=== PATIENT | female | born 1940 | race Caucasian/White ===

== ENCOUNTER → 2016-05-23 | Outpatient (CLI) | payer OTHER ==
[~2016-05-23] MED LIST: IOPAMIDOL (ISOVUE-300) 100 ML BTL IV ONE
[2016-05-23 08:32] LABS: CREATININE 0.6 mg/dL (0.6-1.0); GLOMERULAR FILTRATION RATE > 60
== END ==
LOC: FIMAGING 07:40
PROVIDERS: ATTEND Family Medicine
DX: R19.00 Intra-abdominal and pelvic swelling, mass and lump, unspecified site (principal); N28.89 Other specified disorders of kidney and ureter; K80.20 Calculus of gallbladder without cholecystitis without obstruction; K44.9 Diaphragmatic hernia without obstruction or gangrene
CPT/HCPCS: 74177; Q9967

== ENCOUNTER 2016-06-17 01:43 | Emergency (ER) | payer OTHER ==
[2016-06-17 01:52] VITALS: RESP 18
[2016-06-17] MEDS ORDERED: NS 1,000 ML IV ONE (02:06)
[2016-06-17] MEDS ORDERED: ONDANSETRON 4 MG/2 ML VIAL IVP ONE (02:06)
[2016-06-17] MEDS ORDERED: HYDROmorphONE/DILAUDID 1 MG/ML SYR IVP ONE ×2 (02:06→03:23)
--- NOTE | 2016-06-17 02:10 | EDPHY ---
H & P Stated Complaint: abd/rectal pain Time Seen by Provider: 06/17/16 02:00 HPI/ROS: CHIEF COMPLAINT: Abdominal pain HISTORY OF PRESENT ILLNESS: Patient is a 76-year-old female comes to the emergency department complaining of abdominal pain, distention and episode of vomiting about an hour ago. She states that she has not had a bowel movement since she had a hysterectomy/oophorectomy on Monday. This is postop day 3. 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 She was discharged from [facility] yesterday after passing gas. She states however that during the evening and overnight her pain has increased significantly. She denies urinary symptoms. She has felt too nauseous to take her pain medication. REVIEW OF SYSTEMS: Constitutional: denies: chills, fever, recent illness, recent injury EENTM: denies: blurred vision, double vision, nose congestion Respiratory: denies: cough, shortness of breath Cardiac: denies: chest pain, irregular heart rate, lightheadedness, palpitations Gastrointestinal/Abdominal: See HPI Genitourinary: denies: dysuria, frequency, hematuria, pain Musculoskeletal: denies: joint pain, muscle pain Skin: denies: lesions, rash, jaundice, bruising Neurological: denies: headache, numbness, paresthesia, tingling, dizziness, weakness Hematologic/Lymphatic: denies: blood clots, easy bleeding, easy bruising Immunologic/allergic: denies: HIV/AIDS, transplant EXAM: GENERAL: Well-appearing, well-nourished and in no acute distress. HEAD: Atraumatic, normocephalic. EYES: Pupils equal round and reactive to light, extraocular movements intact, sclera anicteric, conjunctiva are normal. ENT: TMs normal, nares patent, oropharynx clear without exudates. Moist mucous membranes. NECK: Normal range of motion, supple without lymphadenopathy or JVD. LUNGS: Breath sounds clear to auscultation bilaterally and equal. No wheezes rales or rhonchi. HEART: Regular rate and rhythm without murmurs, rubs or gallops. ABDOMEN: Distended, nontender, wound clean dry and intact. Rectal shows soft external hemorrhoid, mildly tender, no bleeding no stool in rectal vault. BACK: No CVA tenderness, no spinal tenderness, step-offs or deformities EXTREMITIES: Normal range of motion, no pitting or edema. No clubbing or cyanosis. NEUROLOGICAL: Cranial nerves II through XII grossly intact. Normal speech, normal gait. 5/5 strength, normal movement in all extremities, normal sensation PSYCH: Normal mood, normal affect. SKIN: Warm, dry, normal turgor, no visible rashes or lesions. Source: Patient Exam Limitations: No limitations - Personal History Current Tetanus/Diphtheria Vaccine: Yes Current Tetanus Diphtheria and Acellular Pertussis (TDAP): Yes - Medical/Surgical History Hx Asthma: No Hx Chronic Respiratory Disease: No Hx Diabetes: No Hx Cardiac Disease: No Hx Renal Disease: No Hx Cirrhosis: No Hx Alcoholism: No Hx HIV/AIDS: No Hx Splenectomy or Spleen Trauma: No Other PMH: hysterectomy, hypothyroid, - Family History Significant Family History: No pertinent family hx - Social History Smoking Status: Never smoked Alcohol Use: None Drug Use: None Constitutional: Initial Vital Signs Temperature (C) 36.6 C 06/17/16 01:49 Heart Rate 99 06/17/16 01:49 Respiratory Rate 18 06/17/16 01:49 Blood Pressure 136/75 H 06/17/16 01:49 O2 Sat (%) 91 L 06/17/16 01:49 O2 Delivery Mode Room Air O2 (L/minute) 4 Allergies/Adverse Reactions: No Known Allergies Allergy (Unverified 09/01/12 19:01) Home Medications: Medication Instructions Recorded Simvastatin [Zocor 20 mg (RX)] 20 mg PO DAILY18 09/01/12 THYROID 10 mg PO DAILY 09/01/12 oxyCODONE/APAP 5/325 [Percocet 1 tab PO Q4-6PRN PRN #14 tab 09/01/12 5/325] Medical Decision Making - Diagnostics Imaging: Discussed imaging studies w/ charge authorizer Radiologist ED Course/Re-evaluation: We discussed the patient's CT scan which is reassuring. The patient is currently symptom free. Abdomen is nontender. She does have a hemorrhoid on rectal exam but no stool in her vault. Nonbloody. I will start her on MiraLax and have encouraged her to take stool softeners. She had only taken 2. Also encouraged her to decrease the opiates if she is possible. I will have her titrate the MiraLax to affect. She and her are happy with this plan and declines further workup or testing at this time. Differential Diagnosis: Partial list of the Differential diagnosis considered include but were not limited to; constipation, small-bowel obstruction, perforation, hemorrhoid, hemorrhage and although unlikely based on the history and physical exam, I also considered prolapse, abscess. I discussed these differential diagnoses and the plan with the patient as well as the usual and expected course. The patient understands that the diagnosis is provisional and that in medicine we are not always correct and that further workup is often warranted. Usual and customary warnings were given. All of the patient's questions were answered. The patient was instructed to return to the emergency department should the symptoms at all worsen or return, otherwise to followup with the physician as we discussed. - Data Points Laboratory Results: Laboratory Results 06/17/16 02:25 06/17/16 02:25 06/17/16 06/17/16 02:25 02:25 WBC 4.06 10^3/uL 10^3/uL (3.80-9.50) RBC 4.04 10^6/uL L 10^6/uL (4.18-5.33) Hgb 12.2 g/dL L g/dL (12.6-16.3) Hct 37.7 % L % (38.0-47.0) MCV 93.3 fL fL (81.5-99.8) MCH 30.2 pg pg (27.9-34.1) MCHC 32.4 g/dL g/dL (32.4-36.7) RDW 12.1 % % (11.5-15.2) Plt Count 231 10^3/uL 10^3/uL (150-400) MPV 9.4 fL fL (8.7-11.7) Neut % (Auto) 80.4 % H % (39.3-74.2) Lymph % (Auto) 14.8 % L % (15.0-45.0) [place] % (Auto) 4.4 % L % (4.5-13.0) Eos % (Auto) 0.0 % L % (0.6-7.6) Baso % (Auto) 0.2 % L % (0.3-1.7) Nucleat RBC Rel Count 0.0 % % (0.0-0.2) Absolute Neuts (auto) 3.26 10^3/uL 10^3/uL (1.70-6.50) Absolute Lymphs (auto) 0.60 10^3/uL L 10^3/uL (1.00-3.00) Absolute Monos (auto) 0.18 10^3/uL L 10^3/uL (0.30-0.80) Absolute Eos (auto) 0.00 10^3/uL L 10^3/uL (0.03-0.40) Absolute Basos (auto) 0.01 10^3/uL L 10^3/uL (0.02-0.10) Absolute Nucleated RBC 0.00 10^3/uL 10^3/uL (0-0.01) Immature Gran % 0.2 % % (0.0-1.1) Immature Gran # 0.01 10^3/uL 10^3/uL (0.00-0.10) Sodium 139 mEq/L mEq/L (134-144) Potassium 3.8 mEq/L mEq/L (3.5-5.2) Chloride 101 mEq/L mEq/L (97-110) Carbon Dioxide 29 mEq/l mEq/l (22-31) Anion Gap 9 mEq/L mEq/L (8-16) BUN 12 mg/dL mg/dL (7-23) Creatinine 0.5 mg/dL L mg/dL (0.6-1.0) Estimated GFR > 60 Glucose 156 mg/dL H mg/dL (70-100) Calcium 8.7 mg/dL mg/dL (8.5-10.4) Total Bilirubin 1.0 mg/dL mg/dL (0.1-1.4) Conjugated Bilirubin 0.5 mg/dL mg/dL (0.0-0.5) Unconjugated Bilirubin 0.5 mg/dL mg/dL (0.0-1.1) AST 34 IU/L IU/L (14-46) ALT 33 IU/L IU/L (9-52) Alkaline Phosphatase 57 IU/L IU/L (38-126) Total Protein 6.0 g/dL L g/dL (6.3-8.2) Albumin 3.5 g/dL g/dL (3.5-5.0) Lipase 36.0 IU/L IU/L (23-300) Medications Given: Discontinued Medications Hydromorphone HCl (Dilaudid) 0.5 mg IVP EDNOW ONE Stop: 06/17/16 02:07 Last Admin: 06/17/16 02:38 Dose: 0.5 mg Hydromorphone HCl (Dilaudid) 0.5 mg IVP EDNOW ONE Stop: 06/17/16 03:24 Last Admin: 06/17/16 03:23 Dose: 0.5 mg Sodium Chloride (Ns) 1,000 mls @ 0 mls/hr IV ONCE ONE PRN Reason: Wide Open Stop: 06/17/16 02:07 Last Admin: 06/17/16 02:38 Dose: 1,000 mls Ondansetron HCl (Zofran) 4 mg IVP EDNOW ONE Stop: 06/17/16 02:07 Last Admin: 06/17/16 02:39 Dose: 4 mg Departure - Departure Disposition: Home, Routine, Self-Care Clinical Impression: Constipation Qualifiers: Constipation type: unspecified constipation type Qualified Code(s): K59.00 - Constipation, unspecified Hemorrhoid Qualifiers: Hemorrhoid type: unspecified Qualified Code(s): K64.9 - Unspecified hemorrhoids Condition: Fair Instructions: Constipation (ED), Hemorrhoids (ED) Additional Instructions: Use the MiraLax 1 cap full every 2 hours until you have satisfactory results then discontinue Use preparation H with cortisone cream apply to hemorrhoid twice daily Try to decrease narcotic use Referrals: Beelm Gao MD [Primary Care Provider] - As per Instructions Staci Klein MD [Retired Resigned] - As per Instructions
[2016-06-17 02:34] LABS: % IMMATURE GRANULYOCYTES 0.2 % (0.0-1.1); ABSOLUTE IMMATURE GRANULOCYTES 0.01 10^3/uL (0.00-0.10); ADD DIFF? NO; ADD MORPH? NO; ADD SCAN? NO; ATYPICAL LYMPHOCYTE FLAG 0 (0-99); FRAGMENT RBC FLAG 0 (0-99); HEMATOCRIT 37.7 % (38.0-47.0); HEMOGLOBIN 12.2 g/dL (12.6-16.3); LEFT SHIFT FLG 30 (0-99); LIPEMIA HEMOLYSIS FLAG 80 (0-99); MEAN CELL HEMOGLOBIN 30.2 pg (27.9-34.1); MEAN CELL HEMOGLOBIN CONCENTR. 32.4 g/dL (32.4-36.7); MEAN CELL VOLUME 93.3 fL (81.5-99.8); MEAN PLATELET VOLUME 9.4 fL (8.7-11.7); PLATELET CLUMPS FLAG 0 (0-99); PLATELET COUNT 231 10^3/uL (150-400); RED BLOOD CELL COUNT 4.04 10^6/uL (4.18-5.33); RED CELL DISTRIBUTION WIDTH 12.1 % (11.5-15.2)
[2016-06-17] MEDS ORDERED: IOPAMIDOL (ISOVUE-300) 100 ML BTL IV ONE (02:34)
[2016-06-17 02:40] VITALS: O2SAT 94
[2016-06-17 03:15] LABS: ALANINE AMINOTRANSFERASE 33 IU/L (9-52); ALBUMIN 3.5 g/dL (3.5-5.0); ALKALINE PHOSPHATASE 57 IU/L (38-126); ANION GAP 9 mEq/L (8-16); ASPARTATE AMINOTRANSFERASE 34 IU/L (14-46); BILIRUBIN-CONJUGATED 0.5 mg/dL (0.0-0.5); BILIRUBIN-UNCONJUGATED 0.5 mg/dL (0.0-1.1); CALCIUM 8.7 mg/dL (8.5-10.4); CARBON DIOXIDE 29 mEq/l (22-31); CHLORIDE 101 mEq/L (97-110); CREATININE 0.5 mg/dL (0.6-1.0); GLOMERULAR FILTRATION RATE > 60; GLUCOSE 156 mg/dL (70-100); POTASSIUM 3.8 mEq/L (3.5-5.2); SODIUM 139 mEq/L (134-144)
[2016-06-17] MEDS ORDERED: HYDROmorphONE/DILAUDID 1 MG/ML SYR ONE (03:19)
[2016-06-17 06:24] VITALS: BP 155/90; PULSE 105; TEMP 98.1
== END 2016-06-17 05:00 | disposition home or self-care (01) ==
DX: K59.00 Constipation, unspecified (principal); K64.9 Unspecified hemorrhoids; Z90.710 Acquired absence of both cervix and uterus
CPT/HCPCS: 74177; 96361; 96374; 96375; 96376; 99285; J1170; J2405; P9016; Q9967

== ENCOUNTER 2016-06-17 13:10 | Inpatient (IN) | payer OTHER ==
[2016-06-17] MEDS ORDERED: NS 1,000 ML IV ONE (13:26)
[2016-06-17] MEDS ORDERED: ONDANSETRON 4 MG/2 ML VIAL IVP ONE (13:26)
[2016-06-17] MEDS ORDERED: ERTAPENEM 1 GM in NS 100 ML IV ONE (13:42)
--- NOTE | 2016-06-17 13:47 | EDPHY ---
H & P Time Seen by Provider: 06/17/16 13:26 HPI/ROS: CHIEF COMPLAINT: Abdominal pain, vomiting HISTORY OF PRESENT ILLNESS: 76-year-old female 3 days status post NANCY and bilateral oophorectomy presents with severe abdominal pain and vomiting. She was doing well in the postoperative period until this morning at 2:00 a.m.. She had sudden onset of severe pelvic discomfort associated with vomiting. She was seen in this emergency department this morning and the initial CT scan report was negative. However, on over-read of the CT scan this afternoon, she has a micro perforation of the sigmoid colon. She continues to have severe pelvic discomfort, left greater than right, associated with multiple episodes of vomiting. She is unable to tolerate any fluids or food. No bowel movement since the operation. No known fever and no chills. REVIEW OF SYSTEMS: Eyes: No visual changes ENT: No sore throat Respiratory: No cough, no shortness of breath Cardiac: No chest pain Genitourinary: No hematuria, no dysuria Musculoskeletal: No leg pain or swelling Skin: No rash Neurological: No headache Psychiatric: No depression Past Medical/Surgical History: Hypothyroidism Social History: Academic Hospitalist: Dr. Staci Klein Smoking Status: Never smoked Physical Exam: General Appearance: Alert, pale, appears in pain Eyes: Pupils equal and round, no conjunctival pallor ENT, Mouth: Mucous membranes moist Neck: Normal inspection Respiratory: Lungs are clear to auscultation Cardiovascular: Regular rate and rhythm Gastrointestinal: Abdomen is distended, diffuse pelvic tenderness, especially on the left, hypoactive bowel sounds; the surgical incision is clean dry and intact with surrounding ecchymosis Neurological: A&O, nonfocal exam Skin: Warm and dry, no rash Extremities: Nontender, no pedal edema Psychiatric: Mood and affect normal Constitutional: Initial Vital Signs Temperature (C) 36.1 C 06/17/16 13:15 Heart Rate 88 06/17/16 13:15 Respiratory Rate 16 06/17/16 13:15 Blood Pressure 139/78 H 06/17/16 13:15 O2 Sat (%) 96 06/17/16 13:15 O2 Delivery Mode Oxymask O2 (L/minute) 10 Allergies/Adverse Reactions: No Known Allergies Allergy (Unverified 09/01/12 19:01) Home Medications: Medication Instructions Recorded Simvastatin [Zocor 20 mg (RX)] 20 mg PO DAILY18 09/01/12 THYROID 10 mg PO DAILY 09/01/12 oxyCODONE/APAP 5/325 [Percocet 1 tab PO Q4-6PRN PRN #14 tab 09/01/12 5/325] Medical Decision Making - Diagnostics Imaging Results: Imaging Impressions Chest X-Ray 06/17/16 14:11 Impression: 1. Bibasilar subsegmental atelectasis. 2. Free air is suspected under the right hemidiaphragm. This was also identified on CT study from earlier today. ED Course/Re-evaluation: IV normal saline 1 L, morphine and Zofran IV given. Invanz 1 g IV given for bowel perforation. Dr Ernie cabrera, d/w her PA, Zara. Will c/b. 2 p.m.-The patient's blood pressure is now 89/60 and heart rate 130, O2 sat 80% on RA and she is drowsy. Abdominal exam unchanged. This is a very rapid change in her status, and she is likely septic. Lactate and blood cultures were drawn. IV normal saline 2 L given. I consulted with Dr. Myra Allen, she will see the patient in the emergency department. 2:20pm-Dr. Nails in ED and is planning to take the patient emergently to the operating room. IVF infusing at 20ml/kg, remains hypotensive, will consider central line/pressors in OR if hypotension persists. At this point she meets the severe sepsis protocol, lactate is still pending. This patient utilized 40 minutes of critical care time exclusive of unbundled procedures. Differential Diagnosis: Differential diagnosis includes does not limited to bowel perforation, pneumonia , urinary tract infection, dehydration, small-bowel obstruction. - Data Points Laboratory Results: Laboratory Results 06/17/16 13:30 06/17/16 13:30 06/17/16 06/17/16 06/17/16 14:53 14:32 13:30 WBC RBC Hgb POC Hgb 7.8 gm/dL L gm/dL (12.3-15.9) Hct POC Hct 23 % L % (35.5-47.5) MCV MCH MCHC RDW Plt Count MPV Neut % (Auto) Lymph % (Auto) [place] % (Auto) Eos % (Auto) Baso % (Auto) Nucleat RBC Rel Count Absolute Neuts (auto) Absolute Lymphs (auto) Absolute Monos (auto) Absolute Eos (auto) Absolute Basos (auto) Absolute Nucleated RBC Immature Gran % Seg Neutrophils % Band Neutrophils % Lymphocytes % Monocytes % Eosinophils % Metamyelocytes % Myelocytes % Immature Gran # Absolute Seg Neuts Absolute Band Neuts Absolute Lymphocytes Absolute Monocytes Absolute Eosinophils Absolute Metamyelocyte Absolute Myelocytes Platelet Estimate Polychromasia Oval Macrocytes Smear Review By PT 14.9 SEC SEC (12.0-15.0) INR 1.17 H (0.83-1.16) APTT 28.7 SEC SEC (23.0-38.0) POC Sodium 144 mEq/L mEq/L (134-144) Sodium POC Potassium 2.4 mEq/L L* mEq/L (3.3-5.0) Potassium POC Chloride 108 mEq/L mEq/L (96-108) Chloride Carbon Dioxide Anion Gap POC BUN 11 mg/dL mg/dL (7-23) BUN Creatinine POC Creatinine 0.8 mg/dL mg/dL (0.6-1.2) Estimated GFR Glucose POC Glucose 96 mg/dL mg/dL (70-100) Calcium Total Bilirubin 1.2 mg/dL mg/dL (0.1-1.4) 06/17/16 06/17/16 13:30 13:30 WBC 2.10 10^3/uL L 10^3/uL (3.80-9.50) RBC 3.96 10^6/uL L 10^6/uL (4.18-5.33) Hgb 11.9 g/dL L g/dL (12.6-16.3) POC Hgb Hct 37.3 % L % (38.0-47.0) POC Hct MCV 94.2 fL fL (81.5-99.8) MCH 30.1 pg pg (27.9-34.1) MCHC 31.9 g/dL L g/dL (32.4-36.7) RDW 12.3 % % (11.5-15.2) Plt Count 233 10^3/uL 10^3/uL (150-400) MPV 9.6 fL fL (8.7-11.7) Neut % (Auto) 76.7 % H % (39.3-74.2) Lymph % (Auto) 15.2 % % (15.0-45.0) [place] % (Auto) 7.6 % % (4.5-13.0) Eos % (Auto) 0.0 % L % (0.6-7.6) Baso % (Auto) 0.5 % % (0.3-1.7) Nucleat RBC Rel Count 0.0 % % (0.0-0.2) Absolute Neuts (auto) 1.61 10^3/uL L 10^3/uL (1.70-6.50) Absolute Lymphs (auto) 0.32 10^3/uL L 10^3/uL (1.00-3.00) Absolute Monos (auto) 0.16 10^3/uL L 10^3/uL (0.30-0.80) Absolute Eos (auto) 0.00 10^3/uL L 10^3/uL (0.03-0.40) Absolute Basos (auto) 0.01 10^3/uL L 10^3/uL (0.02-0.10) Absolute Nucleated RBC 0.00 10^3/uL 10^3/uL (0-0.01) Immature Gran % 0.0 % % (0.0-1.1) Seg Neutrophils % 19 % % Band Neutrophils % 35 % % Lymphocytes % 22 % % Monocytes % 3 % % Eosinophils % 1 % % Metamyelocytes % 13 % % Myelocytes % 7 % % Immature Gran # 0.00 10^3/uL 10^3/uL (0.00-0.10) Absolute Seg Neuts 0.40 10^/uL L 10^/uL (1.70-6.50) Absolute Band Neuts 0.74 10^3/uL H 10^3/uL (0.00-0.70) Absolute Lymphocytes 0.46 10^3/uL L 10^3/uL (1.00-3.00) Absolute Monocytes 0.06 10^3/uL L 10^3/uL (0.30-0.80) Absolute Eosinophils 0.02 10^3/uL L 10^3/uL (0.03-0.40) Absolute Metamyelocyte 0.27 10^3/mL H 10^3/mL (0.00-0.00) Absolute Myelocytes 0.15 10^3/mL H 10^3/mL (0.00-0.00) Platelet Estimate ADEQUATE (ADEQ) Polychromasia 1+ H Oval Macrocytes 1+ H Smear Review By Pending PT INR APTT POC Sodium Sodium 133 mEq/L L mEq/L (134-144) POC Potassium Potassium 3.6 mEq/L mEq/L (3.5-5.2) POC Chloride Chloride 98 mEq/L mEq/L (97-110) Carbon Dioxide 21 mEq/l L D mEq/l (22-31) Anion Gap 14 mEq/L mEq/L (8-16) POC BUN BUN 17 mg/dL mg/dL (7-23) Creatinine 1.0 mg/dL D mg/dL (0.6-1.0) POC Creatinine Estimated GFR 54 Glucose 149 mg/dL H mg/dL (70-100) POC Glucose Calcium 8.4 mg/dL L mg/dL (8.5-10.4) Total Bilirubin Medications Given: Discontinued Medications Sodium Chloride (Ns) 1,000 mls @ 0 mls/hr IV ONCE ONE PRN Reason: Wide Open Stop: 06/17/16 13:27 Last Admin: 06/17/16 13:38 Dose: 1,000 mls Ertapenem 1 gm/ Sodium (Chloride) 100 mls @ 200 mls/hr IV EDNOW ONE PRN Reason: Protocol Stop: 06/17/16 14:11 Last Admin: 06/17/16 14:40 Dose: 100 mls Morphine Sulfate (Morphine) 4 mg IVP EDNOW ONE Stop: 06/17/16 13:42 Last Admin: 06/17/16 14:40 Dose: Not Given Ondansetron HCl (Zofran) 4 mg IVP EDNOW ONE Stop: 06/17/16 13:27 Last Admin: 06/17/16 13:53 Dose: 4 mg Point of Care Test Results: 06/17/16 14:32 POC Sodium 144 POC Potassium 2.4 L* POC Chloride 108 POC BUN 11 POC Creatinine 0.8 POC Glucose 96 Departure - Departure Disposition: To OP Cath/Surgery Clinical Impression: Bowel perforation, Severe sepsis Condition: Critical
--- NOTE | 2016-06-17 13:58 | CPEKG ---
Heart Rate: 120 RR Interval: 500 P-R Interval: 132 QRSD Interval: 78 QT Interval: 316 QTC Interval: 447 P [place]: -23 QRS [place]: -54 T Wave [place]: 22 EKG Severity - ABNORMAL ECG - EKG Impression: SINUS TACHYCARDIA EKG Impression: PROBABLE LEFT ATRIAL ABNORMALITY EKG Impression: LEFT ANTERIOR FASCICULAR BLOCK EKG Impression: CONSIDER RVH W/ SECONDARY REPOL ABNORMALITY EKG Impression: PROBABLE LEFT VENTRICULAR HYPERTROPHY Electronically Signed By: Quynh Wesley 17-Jun-2016 20:40:12
[2016-06-17 13:59] LABS: ADD DIFF? NO; ADD MORPH? NO; ADD SCAN? YES; ATYPICAL LYMPHOCYTE FLAG 0 (0-99); FRAGMENT RBC FLAG 0 (0-99); HEMATOCRIT 37.3 % (38.0-47.0); HEMOGLOBIN 11.9 g/dL (12.6-16.3); LIPEMIA HEMOLYSIS FLAG 80 (0-99); MEAN CELL HEMOGLOBIN 30.1 pg (27.9-34.1); MEAN CELL HEMOGLOBIN CONCENTR. 31.9 g/dL (32.4-36.7); MEAN CELL VOLUME 94.2 fL (81.5-99.8); MEAN PLATELET VOLUME 9.6 fL (8.7-11.7); PLATELET CLUMPS FLAG 20 (0-99); PLATELET COUNT 233 10^3/uL (150-400); RED BLOOD CELL COUNT 3.96 10^6/uL (4.18-5.33); RED CELL DISTRIBUTION WIDTH 12.3 % (11.5-15.2)
[2016-06-17 14:01] LABS: LEFT SHIFT FLG 300 (0-99)
[2016-06-17 14:21] LABS: ANION GAP 14 mEq/L (8-16); CALCIUM 8.4 mg/dL (8.5-10.4); CARBON DIOXIDE 21 mEq/l (22-31); CHLORIDE 98 mEq/L (97-110); GLOMERULAR FILTRATION RATE 54; GLUCOSE 149 mg/dL (70-100); POTASSIUM 3.6 mEq/L (3.5-5.2); SODIUM 133 mEq/L (134-144)
[2016-06-17] MEDS ORDERED: NS 2,200 ML IV ONE (14:46)
[2016-06-17] MEDS ORDERED: BUPIVACAINE 0.5% 30 ML SDV ONE (14:54)
[2016-06-17 14:55] LABS: SCAN POSITIVE
[2016-06-17 15:01] LABS: INR 1.17 (0.83-1.16); PROTIME(PATIENT) 14.9 SEC (12.0-15.0)
[2016-06-17 15:02] LABS: APTT 28.7 SEC (23.0-38.0)
[2016-06-17 15:04] LABS: MACROCYTES 1+; PLATELET ESTIMATE ADEQUATE (ADEQ); POLYCHROMASIA 1+
[2016-06-17 15:40] LABS: BILIRUBIN,TOTAL 1.2 mg/dL (0.1-1.4)
--- NOTE | 2016-06-17 16:37 | POSTOPPROG ---
Post Op Note Date of Operation: 06/17/16 Surgeon: Eneida Bowens Ophthalmic Medical Technician: iglesia carlson Anesthesiologist: memo Anesthesia: GET(General Endotracheal) Pre-op Diagnosis: perf viscus Post-op Diagnosis: perforation of sigmoid colon Indication: 76yo Fs/p NANCY BSO with worsening abd pain and e/o free air Procedure: expl laparotomy c colon resection, LAR, diverting loop ileostomy Findings: perf sigmoid colon Inf/Abcess present in the surg proc area at time of surgery?: No Depth: Organ Space EBL: 50-100 Complications: none immediately postop Drains: Eric Talley Specimen(s): colon peritoneal fluid cx
[2016-06-17] MEDS ORDERED: NALOXONE HCL 0.4 MG/ML INJ IVP PRN (16:42)
[2016-06-17] MEDS ORDERED: PROTOCOL CALCIUM 1 DOSE IV PRN (18:19)
[2016-06-17] MEDS ORDERED: PROTOCOL MAGNESIUM 1 DOSE IV PRN (18:19)
[2016-06-17] MEDS ORDERED: PROTOCOL K PHOSPHATE 1 DOSE IV PRN (18:19)
[2016-06-17] MEDS ORDERED: PROTOCOL POTASSIUM 1 DOSE MISC PRN (18:19)
--- NOTE | 2016-06-17 18:19 | POSTANESTH ---
Post Anesthetic Evaluation Cardiovascular Status: Tx Hyper/Hypo-tension Respiratory Status: Similar to Pre-op Cond. Level of Consciousness/Mental Status: Mildly Sleepy, Arousable Pain Control: Adequate, Prn Tx Ordered Nausea/Vomiting Control: Adequate, Prn Tx Ordered Complications Possibly Related to Anesthesia: None Noted (On NorEPI, post 5L crystalloid and 2 units PRBC)
[2016-06-17 19:18] LABS: MIXED VENOUS O2 SATURATION 92 % (65-75)
[2016-06-17] MEDS: POTASSIUM Cl (KCl) 50 ML IV SCH ×2 (19:20→21:43)
[2016-06-17] MEDS: HYDROmorphONE/DILAUDID 6 MG/30 ML PCA IV PRN (19:21)
[2016-06-17 19:23] LABS: ALANINE AMINOTRANSFERASE 36 IU/L (9-52); ALBUMIN 1.8 g/dL (3.5-5.0); ALKALINE PHOSPHATASE 32 IU/L (38-126); ANION GAP 6 mEq/L (8-16); ASPARTATE AMINOTRANSFERASE 44 IU/L (14-46); BILIRUBIN,TOTAL 1.1 mg/dL (0.1-1.4); CARBON DIOXIDE 22 mEq/l (22-31); CHLORIDE 107 mEq/L (97-110); CREATININE 0.8 mg/dL (0.6-1.0); GLOMERULAR FILTRATION RATE > 60; GLUCOSE 98 mg/dL (70-100); POTASSIUM 3.3 mEq/L (3.5-5.2); SODIUM 135 mEq/L (134-144); TOTAL PROTEIN 3.5 g/dL (6.3-8.2)
[2016-06-17 19:39] LABS: LACGHOST ORDER
[2016-06-17 19:56] LABS: CALCIUM 6.6 mg/dL (8.5-10.4)
[2016-06-17] MEDS: VASOPRESSIN/DEXTROSE 250 ML IV SCH (20:02)
[2016-06-17] MEDS: NOREPINEPHRINE/NS 500 ML IV SCH (22:08)
--- NOTE | 2016-06-17 22:41 | GOP ---
[f rep st] OPERATIVE REPORT DATE OF OPERATION: 06/17/2016 SURGEON: Myra Allen MD FLOOR SERVICE WORKER SPRING: Shantanu Mendenhall MD, who was requested to be present for timely completion of the case. PREOPERATIVE DIAGNOSIS: Free air. POSTOPERATIVE DIAGNOSIS: Perforated sigmoid colon. PROCEDURE PERFORMED: Open low anterior resection with splenic flexure takedown and diverting loop ileostomy. FINDINGS: Stool throughout the abdomen, hole in the midsigmoid colon on the lateral wall. SPECIMENS: Fluid for microbiology. Sigmoid colon. ESTIMATED BLOOD LOSS: 50 cc. 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 She was discharged from the hospital, passing flatus and tolerating a diet. Last night, she began to have increasing abdominal pain. She presented to the emergency room and had a CT scan of her abdomen and pelvis performed. On over-read this morning, free air was read, and she was asked to return to the ER. While she was in the ER, she became hypotensive and tachycardic. I was consulted. Due to the constellation of abdominal pain, free air and signs of sepsis, I took her immediately to the operating room. DESCRIPTION OF PROCEDURE: The patient was brought into the operating room, placed supine on the table, and general anesthesia was administered. Her abdomen was prepped and draped in the usual sterile fashion. I made an incision over her previous scar and extended it cephalad. I dissected down through the subcutaneous tissues until I encountered the anterior rectus sheath. I divided this. I then entered the peritoneal cavity. Upon entering the peritoneal cavity, there was liquid stool; this was suctioned. I then began to explore her abdomen systematically, going from the rectum along the transverse colon. In the area of the sigmoid, there was some inflammation but the colon was overall soft. I examined the transverse colon and the cecum. I ran the entire small bowel. I irrigated her abdomen with 3 L of warmed irrigation and then systematically began exploring her abdomen again. In the midsigmoid colon, I found a perforation on the lateral wall. There were Vicryl sutures near the perforation. I selected a point of bowel distally. I transected it with a GERHARD 75 and I selected a piece of bowel proximally and transected this with a GERHARD 75. I divided the mesentery with the Harmonic scalpel and then aligned her bowel to perform a side-to-end anastomosis. As I was doing this, a portion of the proximal bowel was not appropriate for anastomosis. I then performed splenic flexure takedown. I resected a small portion of the proximal bowel and then was able to perform a end-to-end anastomosis without tension or torsion; this was performed in 2 layers with 3-0 Vicryl. A drain was placed deep into her pelvis and exited the left lower quadrant. It was sutured into place with 3-0 Nylon. The abdomen was irrigated again. Gloves were changed. I selected a point on her abdomen in the right lower quadrant for the ileostomy. I divided the skin down to the fascia and I created an area that would accommodate 2 fingerbreadths. We brought a loop of bowel up to the skin. I placed EpiFix 2 x 12 cm around the anastomosis and also within the diverting ileostomy site. I closed the midline wound with # 1 PDS. I irrigated the skin. I closed the skin with jim. A sterile dressing was applied. Next I sutured the ileostomy to the fascia at 2 points with 2-0 Vicryl and then created an enterotomy in the ileostomy and Brooked it. I then matured the ostomy with 3-0 Vicryl. Appliance was placed. A central line was placed by anesthesia, and she was taken back to the ICU extubated. /[id number]/MODL MTDD
[2016-06-17] MEDS ORDERED: HYDROCORTISONE 100 MG/2 ML VIAL IVP SCH (23:00)
[2016-06-17 23:30] LABS: HEMATOCRIT 41.3 % (38.0-47.0); HEMOGLOBIN 13.6 g/dL (12.6-16.3)
[2016-06-17] MEDS ORDERED: ALBUMIN 25% 100 ML IV ONE (23:30)
--- NOTE | 2016-06-18 02:30 | SOAPPROG ---
SOAP Progress Note Assessment/Plan: Assessment: s/p ex lap with LAR and diverting ileostomy for perforation at sigmoid colon Still on high dose pressors CVP is 9 Resting comfortably Plan: 06/18/16 01:50 Objective: Vital Signs Temp Pulse Resp BP Pulse Ox 36.7 C 110 H 14 107/50 L 93 06/17/16 19:00 06/18/16 01:00 06/18/16 01:00 06/18/16 01:00 06/18/16 01:00 Microbiology 06/17/16 15:11 Gram Stain - Final Peritoneal Fluid - Aspirate Laboratory Results 06/17/16 23:25 06/17/16 18:30 06/16/16 06/17/16 06/18/16 05:59 05:59 05:59 Intake Total 3000 Output Total 260 Balance 2740 PT 14.9 SEC (12.0-15.0) 06/17/16 13:30 INR 1.17 (0.83-1.16) H 06/17/16 13:30 ICD10 Worksheet Patient Problems: Problems Problem Status Onset Bowel perforation Acute Severe sepsis Acute
[2016-06-18 04:35] LABS: IONIZED CALCIUM 0.97 MMOL/L (1.12-1.30)
[2016-06-18] MEDS: NOREPINEPHRINE/NS 500 ML IV SCH ×3 (04:42→22:10)
[2016-06-18] MEDS ORDERED: CALCIUM GLUCONATE 50 ML IV ONE (04:44)
[2016-06-18 04:49] LABS: ANION GAP 5 mEq/L (8-16); CALCIUM 6.7 mg/dL (8.5-10.4); CARBON DIOXIDE 22 mEq/l (22-31); CHLORIDE 111 mEq/L (97-110); CREATININE 0.6 mg/dL (0.6-1.0); GLOMERULAR FILTRATION RATE > 60; GLUCOSE 82 mg/dL (70-100); MAGNESIUM 3.1 mg/dL (1.6-2.3); POTASSIUM 4.4 mEq/L (3.5-5.2); SODIUM 138 mEq/L (134-144)
[2016-06-18] MEDS: VASOPRESSIN/DEXTROSE 250 ML IV SCH (06:19)
[2016-06-18 06:32] LABS: ADD DIFF? YES; ADD MORPH? NO; ATYPICAL LYMPHOCYTE FLAG 0 (0-99); FRAGMENT RBC FLAG 0 (0-99); HEMATOCRIT 39.6 % (38.0-47.0); HEMOGLOBIN 13.1 g/dL (12.6-16.3); LIPEMIA HEMOLYSIS FLAG 80 (0-99); MEAN CELL HEMOGLOBIN 29.7 pg (27.9-34.1); MEAN CELL HEMOGLOBIN CONCENTR. 33.1 g/dL (32.4-36.7); MEAN CELL VOLUME 89.8 fL (81.5-99.8); MEAN PLATELET VOLUME 9.5 fL (8.7-11.7); PLATELET CLUMPS FLAG 0 (0-99); PLATELET COUNT 216 10^3/uL (150-400); RED BLOOD CELL COUNT 4.41 10^6/uL (4.18-5.33); RED CELL DISTRIBUTION WIDTH 15.5 % (11.5-15.2)
[2016-06-18 06:58] LABS: ADD SCAN? NO; LEFT SHIFT FLG 300 (0-99)
[2016-06-18] MEDS ORDERED: FAMOTIDINE 20 MG in NS 100 ML IV ONE (07:46)
--- NOTE | 2016-06-18 07:55 | SOAPPROG ---
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 On Vaso and Levophed. Levophed coming down. Hope to avoid high dose steroids due to increased problems with wound healing and anastomotic leak risk. She is scheduled to start chemo in 4 weeks which will likely already be delayed but will be unable to start with any wound issues. Obviously if pressors are unable to continue to be weaned, then we will need to consider steroids as they have been proven to help with hemodynamics GI - Continue NG. Hopefully out tomorrow. Clamp after home meds. WIll keep OUMOU likely until eating. Ostomy Care. - Continue Killian for accurate Is and Os Heme/ID - Zosyn. H/H stable. Minimal blood loss at surgery FEN - NPO for now. Hope she will have return of bowel function within 5 days. Was eating prior to admission Proph - Pepcid and Lovenox PT Dispo - Continue ICU S: She is in good spirits and joking that she feels great O: Plan: 06/18/16 01:50 06/18/16 07:49 Objective: Vital Signs Temp Pulse Resp BP Pulse Ox 36.7 C 101 H 14 107/52 L 94 06/17/16 19:00 06/18/16 06:00 06/18/16 06:00 06/18/16 06:00 06/18/16 06:00 Microbiology 06/17/16 15:11 Gram Stain - Final Peritoneal Fluid - Aspirate Laboratory Results 06/18/16 06:06 06/18/16 04:27 06/17/16 06/18/16 06/19/16 05:59 05:59 05:59 Intake Total 5488.8 Output Total 1250 Balance 4238.8 PT 14.9 SEC (12.0-15.0) 06/17/16 13:30 INR 1.17 (0.83-1.16) H 06/17/16 13:30 Physical Exam - Physical Exam General Appearance: WD/WN, alert, no apparent distress EENT: PERRL/EOMI, normal ENT inspection, other (NG) Respiratory: chest non-tender, lungs clear, other (shallow inspiratory effort) Cardiac/Chest: regular rate, rhythm, other (central line clean) Abdomen: distended, other (hypoactive bowel sounds, dressing dry. Ostomy pink with scant stool. OUMOU with serosang fluid) Pelvic Exam: other (killian in place) Skin: normal color, warm/dry Neuro/Psych: normal mood/affect ICD10 Worksheet Patient Problems: Problems Problem Status Onset Bowel perforation Acute Severe sepsis Acute
[2016-06-18 08:02] LABS: TOXIC GRANULATION PRESENT; TOXIC VACUOLIZATION PRESENT
[2016-06-18 08:07] LABS: MICROCYTES 1+; PLATELET ESTIMATE ADEQUATE (ADEQ); POLYCHROMASIA 1+
[2016-06-18] MEDS: PIPERACILLIN/TAZO 3.375 GM/DEX 50 ML IV SCH ×4 (08:24→23:41)
[2016-06-18] MEDS ORDERED: NON-FORMULARY NEW DRUG (Simvastatin [Simvastatin] 40 MG) PO SCH (09:00)
[2016-06-18] MEDS ORDERED: ERTAPENEM 1 GM in NS 100 ML IV SCH (09:00)
[2016-06-18] MEDS: HYDROmorphONE/DILAUDID 6 MG/30 ML PCA IV PRN (09:35)
[2016-06-18] MEDS: ENOXAPARIN 40 MG/0.4 ML SYR SC SCH (09:57)
[2016-06-18] MEDS: FAMOTIDINE 20 MG/NACL 50 ML IV SCH ×2 (09:57→21:18)
[2016-06-18] MEDS: ATORVASTATIN CALCIUM 20 MG TAB PO SCH (11:58)
[2016-06-18] MEDS: LEVOTHYROXINE 100 MCG TAB PO SCH (11:58)
[2016-06-18] MEDS ORDERED: PIPERACILLIN/TAZO 3.375 GM/DEX 50 ML IV SCH (12:00)
--- NOTE | 2016-06-18 14:38 | GCON ---
[f rep st] CONSULTATION CRITICAL CARE CONSULTATION HISTORY OF PRESENT ILLNESS: The patient is a 76-year-old female who was found to have a pelvic mass , subsequently revealed to be ovarian carcinoma. I think it was on 05/2017 that she underwent an ex tensive exploratory laparotomy with total an abdominal hysterectomy, bilateral salpingo-oophorectomy , pelvic node/lymph node dissection and omentectomy. She seemed to be doing fairly well and was dis charged home from [facility] but continued to develop abdominal pain. A CT scan, which was orig inally read as normal was over-read, found to have perforation. She subsequently was taken to the perating room here after being evaluated in the emergency department by Dr. Allen where an explorato ry laparotomy was again performed. A portion of colon was resected, and a diverting loop ileostomy was performed for her perforated sigmoid colon. On arrival to the intensive care unit, she was mild ly hypotensive on Levophed, but this escalated substantially over night and around midnight her Levo phed dose was at 26 and her MAP was in the 50s with additional vasopressin. She was given albumin a nd a brief course of hydrocortisone, and after NICOM revealed a very high likelihood of fluid respon siveness. In any case, by morning her pressor requirements had been improved. Her hydrocortisone w as discontinued, and she remained fairly stable. She had no complaints on exam other than mild abdo gómez pain. REVIEW OF SYSTEMS: Otherwise negative. PAST MEDICAL HISTORY: Includes hypothyroidism, the newly diagnosed ovarian cancer, diverticulosis, hyperlipidemia and uterine prolapse. PAST SURGICAL HISTORY: None, other than those events described above. SOCIAL HISTORY: She is a nonsmoker. No alcohol or IV drug use. FAMILY HISTORY: Noncontributory at this time. CURRENT MEDICATIONS: Include Lipitor, Lovenox, Pepcid, Dilaudid CARE MANAGER, Synthroid, Levophed, Zofran, Z osyn and vasopressin. PHYSICAL EXAMINATION: VITAL SIGNS: She was afebrile. Blood pressure was 103/44 with a mean of 56, heart rate of 102, respirations 19, oxygen saturation 93% on 2 L. GENERAL: She was in no apparent distress and was able to speak in full sentences without using accessory muscles for breathing, was alert and oriented x3. HEENT: Pupils are equally round, and reactive to light. Nonicteric and no ninjected. Mucous membranes are moist without erythema or exudate. NECK: Supple without adenopath y or jugular vein distention. Breath sounds were diminished but otherwise clear to auscultation julian aterally without wheeze or rales. HEART: Regular rate and rhythm without murmurs, rubs, gallops. ABDOMEN: Mildly tender with hypoactive bowel tones. Surgical dressings were clean and dry. EXTREM ITIES: Showed no clubbing, cyanosis, or edema. NEUROLOGIC: Nonfocal, including cranial nerves and deep tendon reflexes. SKIN: Warm and dry and without evidence of rash. OBJECTIVE DATA: Includes a white count of 4.3, hematocrit 39.6, platelets 216. Sodium is 138, pota ssium 4.4, chloride 111, bicarb 22, BUN 15, creatinine 0.6, ionized calcium 0.97. AST and ALT were normal yesterday. ASSESSMENT/PLAN: 1. Septic shock due to peritonitis and perforated bowel. She seems to be doing substantially dannie r today with a reduced pressor requirement and will continue titrating those down and targeting a sy stolic blood pressure of about 90-100 since she has a wide pulse pressure and a MAP of 65 may not be an achievable goal at this time. Of note, her blood cultures are growing Klebsiella and Zosyn ough t to be adequate coverage for that. I discussed the case with Dr. Allen in some detail today. We d o not feel that antifungal coverage is necessary. If she does not continue to improve, will conside r an ID consult. 2. Hypoxemia is likely due to atelectasis. There is no underlying pulmonary disease. She seems to be doing well, and I will simply continue with a pulmonary toilet. /[id number]/MOD
[2016-06-18 18:37] LABS: POTASSIUM 3.7 mEq/L (3.5-5.2)
[2016-06-18] MEDS ORDERED: POTASSIUM Cl (KCl) 50 ML IV ONE (20:17)
[2016-06-19] MEDS: VASOPRESSIN/DEXTROSE 250 ML IV SCH (03:51)
[2016-06-19 05:32] LABS: IONIZED CALCIUM 1.15 MMOL/L (1.12-1.30)
[2016-06-19] MEDS: PIPERACILLIN/TAZO 3.375 GM/DEX 50 ML IV SCH ×4 (05:41→23:45)
[2016-06-19 05:51] LABS: MAGNESIUM 3.1 mg/dL (1.6-2.3); POTASSIUM 3.4 mEq/L (3.5-5.2)
[2016-06-19] MEDS: NOREPINEPHRINE/NS 500 ML IV SCH (06:58)
--- NOTE | 2016-06-19 09:04 | SOAPPROG ---
SOAP Progress Note Assessment/Plan: Assessment/Plan 76yo FPOD#2 s/p ex-lap, colectomy c loop ileostomy - Neuro: NEWMAN, pain controlled - Pulm: on min NC, aggressive IS - CV: off pressors, HDS - Abd: soft, aTTP, incision clean, ostomy pink with some sweat. OUMOU serous. NGT with min out, d/c today. Hypoactive bowel sounds, anticipate ileus given contamination. - Renal: killian, dc today, UOP excellent - ID: On zosyn for gross contamination, afebrile, WBC yest WNL - Dispo: has made great progress. Will dc NGT, killian. If continues to look good this afternoon will Tx to floor. ice chips only 06/19/16 09:01 06/19/16 09:03 Subjective: Feels well, pain controlled. Objective: Vital Signs Temp Pulse Resp BP Pulse Ox 36.4 C 87 17 109/51 L 94 06/19/16 06:00 06/19/16 07:00 06/19/16 07:00 06/19/16 08:01 06/19/16 07:00 Microbiology 06/17/16 15:11 Gram Stain - Final Peritoneal Fluid - Aspirate 06/17/16 15:11 Mycobacterial Smear (DEJA) - Final Peritoneal Fluid - Aspirate Laboratory Results 06/18/16 06:06 06/19/16 05:25 06/18/16 06/19/16 06/20/16 05:59 05:59 05:59 Intake Total 5488.8 3180.5 Output Total 1250 1680 Balance 4238.8 1500.5 PT 14.9 SEC (12.0-15.0) 06/17/16 13:30 INR 1.17 (0.83-1.16) H 06/17/16 13:30 ICD10 Worksheet Patient Problems: Problems Problem Status Onset Bowel perforation Acute Severe sepsis Acute
[2016-06-19] MEDS: FAMOTIDINE 20 MG/NACL 50 ML IV SCH ×2 (10:15→22:13)
[2016-06-19] MEDS: ENOXAPARIN 40 MG/0.4 ML SYR SC SCH (10:15)
[2016-06-19] MEDS: NS 1,000 ML IV SCH (11:51)
--- NOTE | 2016-06-19 12:28 | PDINTPN ---
Clinical Services Manager Progress Note Assessment/Plan: Assessment/plan: 76 F s/p extensive NANCY/BSO and LN dissection for ovarian cancer complicated by colon perforation and subsequent peritonitis with septic shock. She was repaired emergently by Dr. Nails and transgferred to the ICU where she had refractory hypotension despite high dose levophed and vasopressin. She was given a single dose of hydrocortisone and a NICOM showed fluid responsiveness so albumin was added. By morning her levophed requirement was substantially improved. She never required intubation. Her blood cultures have grown sensitive Klebsiella. * Peritonitis and septic shock- much better today and off pressors. Adequate abx coverage with Zosyn (was on ertapenem). Good uop and minimal O2 requirement. Continue pulmonary toilet. Possible transfer to floor later today. Objective: Vital Signs Temp Pulse Resp BP Pulse Ox 36.7 C 85 22 H 108/56 L 94 06/19/16 09:00 06/19/16 09:00 06/19/16 09:00 06/19/16 09:00 06/19/16 09:00 Microbiology 06/17/16 15:11 Gram Stain - Final Peritoneal Fluid - Aspirate 06/17/16 15:11 Mycobacterial Smear (DEJA) - Final Peritoneal Fluid - Aspirate Laboratory Results 06/18/16 06:06 06/19/16 05:25 06/18/16 06/19/16 06/20/16 05:59 05:59 05:59 Intake Total 5488.8 3180.5 Output Total 1250 1680 Balance 4238.8 1500.5 PT 14.9 SEC (12.0-15.0) 06/17/16 13:30 INR 1.17 (0.83-1.16) H 06/17/16 13:30 Physical Exam - Physical Exam General Appearance: alert, no apparent distress EENT: PERRL/EOMI Neck: supple Respiratory: lungs clear, normal breath sounds, No respiratory distress, No rales, No rhonchi Cardiac/Chest: normal peripheral pulses, regular rate, rhythm Abdomen: non-tender, soft, No distended Skin: normal color, warm/dry Extremities: No pedal edema Neuro/Psych: alert, normal mood/affect, oriented x 3 ICD10 Worksheet Patient Problems: Problems Problem Status Onset Bowel perforation Acute Severe sepsis Acute
[2016-06-19] MEDS: ATORVASTATIN CALCIUM 20 MG TAB PO SCH (14:47)
[2016-06-19] MEDS: LEVOTHYROXINE 100 MCG TAB PO SCH (14:47)
[2016-06-19] MEDS: POTASSIUM Cl (KCl) 50 ML IV SCH ×4 (15:04→23:46)
--- NOTE | 2016-06-19 18:07 | WOCRNPDOC ---
MARIAN Advanced Assessment Note - Skin Integrity Problem, Advanced Assess Abdomen Surgical Wound/Incision Dressing Type: Gauze, Tegaderm Film Dressing Description: Intact, Shadowed Exudate Amount: Minimal Exudate Characteristic(s): Dried, Serosanguinous Integumentary Issue Intervention: Dressing Changed (by student RN: Applied Cavilon skin prep to periwound; covered w/dry gauze), Dressing Removed (d/t overlapped by ostomy skin barrier wafer tape) Laura Wound Tissue: Intact Wound Edges: Attached (jim intact), Well Defined - Ileostomy Assessment, Advanced Right Lower Abdomen Ileostomy Ileostomy Appliance Intact: Yes (needed to change so that abdominal dressing could be changed) Ileostomy Appliance Currently in Use: Two Piece Flat, 2 1/4, Moldable Stoma Color: Brown, Red (30% slightly dusky) Stoma Turgor: Moist, Friable Stoma Shape: Round Stoma Height: Protruding Slightly Mucocutaneus Junction: Intact (sutures visible) Ileostomy Effluent: Serosangenous, Liquid (scant) Ileostomy Size - Head-to-Toe Length X Width X Depth (cm): 3 x 3.3 x 1.1 ( protruding height) Ileostomy Details: Loop Peristomal Skin: Intact Ileostomy Comment/Treatment Details: Peristomal skin is mildly bruised distally ; Stoma has a friable appearance associated with the 30% dusky surface tissue. Provided ileostomy Post-op Education packet #1, along with introductory verbal and demo education to student RN and to the patient, to the extent of her current attention span. declined to participate. Received verbal permission from patient and to enroll patient in [employer], [employer], and [facility] ostomy patient support programs and samples, to be shipped to home address. Provided complete peristomal care and ileostomy pouching appliance change, with student RN observing and participating. Report to YASMIN Maldonado. Wound/balance weigher to round next either Wednesday 06/21 or Thursday 06/22.
[2016-06-19 22:48] LABS: POTASSIUM 2.9 mEq/L (3.5-5.2)
[2016-06-20] MEDS: POTASSIUM Cl (KCl) 50 ML IV SCH ×5 (02:00→23:20)
[2016-06-20 05:56] LABS: IONIZED CALCIUM 1.06 MMOL/L (1.12-1.30)
[2016-06-20] MEDS: PIPERACILLIN/TAZO 3.375 GM/DEX 50 ML IV SCH ×3 (05:58→17:29)
[2016-06-20 06:31] LABS: % IMMATURE GRANULYOCYTES 1.7 % (0.0-1.1); ABSOLUTE IMMATURE GRANULOCYTES 0.23 10^3/uL (0.00-0.10); ABSOLUTE NRBC COUNT 0.02 10^3/uL (0-0.01); ADD DIFF? NO; ADD MORPH? NO; ADD SCAN? YES; ATYPICAL LYMPHOCYTE FLAG 0 (0-99); FRAGMENT RBC FLAG 20 (0-99); HEMATOCRIT 32.9 % (38.0-47.0); HEMOGLOBIN 10.9 g/dL (12.6-16.3); LEFT SHIFT FLG 300 (0-99); LIPEMIA HEMOLYSIS FLAG 80 (0-99); MEAN CELL HEMOGLOBIN 29.5 pg (27.9-34.1); MEAN CELL HEMOGLOBIN CONCENTR. 33.1 g/dL (32.4-36.7); MEAN CELL VOLUME 88.9 fL (81.5-99.8); MEAN PLATELET VOLUME 9.6 fL (8.7-11.7); NRBC-AUTO% 0.1 % (0.0-0.2); PLATELET CLUMPS FLAG 20 (0-99); PLATELET COUNT 180 10^3/uL (150-400); RED CELL DISTRIBUTION WIDTH 14.9 % (11.5-15.2)
[2016-06-20 06:59] LABS: SCAN POSITIVE
[2016-06-20 07:03] LABS: PLATELET ESTIMATE ADEQUATE (ADEQ); POLYCHROMASIA 1+
[2016-06-20 07:04] LABS: ACANTHOCYTES 1+
[2016-06-20 07:59] LABS: ANION GAP 11 mEq/L (8-16); CALCIUM 7.5 mg/dL (8.5-10.4); CARBON DIOXIDE 21 mEq/l (22-31); CHLORIDE 112 mEq/L (97-110); CREATININE 0.5 mg/dL (0.6-1.0); GLOMERULAR FILTRATION RATE > 60; GLUCOSE 71 mg/dL (70-100); POTASSIUM 3.1 mEq/L (3.5-5.2); SODIUM 144 mEq/L (134-144)
[2016-06-20] MEDS ORDERED: CALCIUM GLUCONATE 50 ML IV ONE (09:05)
[2016-06-20] MEDS: ATORVASTATIN CALCIUM 20 MG TAB PO SCH (09:11)
[2016-06-20] MEDS: FAMOTIDINE 20 MG/NACL 50 ML IV SCH ×2 (09:50→21:12)
[2016-06-20] MEDS: ENOXAPARIN 40 MG/0.4 ML SYR SC SCH (09:51)
[2016-06-20] MEDS: LEVOTHYROXINE 100 MCG TAB PO SCH (09:54)
--- NOTE | 2016-06-20 10:48 | SOAPPROG ---
SOAP Progress Note Assessment/Plan: Assessment: 76 yo F POD#3 s/p ex-lap sigmoid colectomy c diverting loop ileostomy Pain controlled Encouraged ambulation and IS Off pressors Continue NPO Awaiting return of bowel function Wound/ostomy nurse for ostomy education and management IV Zosyn for gross contamination Dispo: tx to med-surg. Continue inpatient until return of bowel function. Discussed c Dr. Bronson S: feeling well this morning. pain controlled. no nausea, fevers. Passed stool per rectum but no flatus or stool from ileostomy O: laying in bed, comfortable, NAD, at bedside No increased wob Hypoactive BS, softly distended. Nontender to light palpation. Ileostomy pink with good profile, no stool or gas in bag. midline dressing intact Objective: Vital Signs Temp Pulse Resp BP Pulse Ox 36.9 C 76 20 119/57 L 95 06/20/16 05:00 06/20/16 09:00 06/20/16 09:00 06/20/16 09:00 06/20/16 09:00 Microbiology 06/17/16 15:11 Gram Stain - Final Peritoneal Fluid - Aspirate Laboratory Results 06/20/16 06:10 06/20/16 07:12 06/19/16 06/20/16 06/21/16 05:59 05:59 05:59 Intake Total 3180.5 2252.5 Output Total 1680 990 100 Balance 1500.5 1262.5 -100 PT 14.9 SEC (12.0-15.0) 06/17/16 13:30 INR 1.17 (0.83-1.16) H 06/17/16 13:30 ICD10 Worksheet Patient Problems: Problems Problem Status Onset Bowel perforation Acute Severe sepsis Acute
[2016-06-20] MEDS ORDERED: K PHOS 10 MMOL in D5W 250 ML IV ONE (12:00)
[2016-06-20] MEDS: morphINE PCA 30 MG/30 ML PCA IV PRN (16:41)
[2016-06-20 19:04] LABS: POTASSIUM 3.5 mEq/L (3.5-5.2)
[2016-06-20] MEDS: NS 1,000 ML IV SCH (22:12)
[2016-06-21] MEDS: PIPERACILLIN/TAZO 3.375 GM/DEX 50 ML IV SCH ×4 (00:14→17:27)
[2016-06-21] MEDS: POTASSIUM Cl (KCl) 50 ML IV SCH (00:19)
[2016-06-21 05:11] LABS: IONIZED CALCIUM 1.14 MMOL/L (1.12-1.30)
[2016-06-21 05:32] LABS: ANION GAP 7 mEq/L (8-16); CALCIUM 7.7 mg/dL (8.5-10.4); CARBON DIOXIDE 23 mEq/l (22-31); CHLORIDE 113 mEq/L (97-110); CREATININE 0.5 mg/dL (0.6-1.0); GLOMERULAR FILTRATION RATE > 60; GLUCOSE 85 mg/dL (70-100); POTASSIUM 3.4 mEq/L (3.5-5.2); SODIUM 143 mEq/L (134-144)
[2016-06-21 05:34] LABS: % IMMATURE GRANULYOCYTES 1.5 % (0.0-1.1); ABSOLUTE IMMATURE GRANULOCYTES 0.17 10^3/uL (0.00-0.10); ABSOLUTE NRBC COUNT 0.02 10^3/uL (0-0.01); ADD DIFF? NO; ADD MORPH? NO; ADD SCAN? YES; ATYPICAL LYMPHOCYTE FLAG 90 (0-99); FRAGMENT RBC FLAG 0 (0-99); HEMATOCRIT 32.2 % (38.0-47.0); HEMOGLOBIN 10.9 g/dL (12.6-16.3); LIPEMIA HEMOLYSIS FLAG 90 (0-99); MEAN CELL HEMOGLOBIN 29.2 pg (27.9-34.1); MEAN CELL HEMOGLOBIN CONCENTR. 33.9 g/dL (32.4-36.7); MEAN CELL VOLUME 86.3 fL (81.5-99.8); MEAN PLATELET VOLUME 9.4 fL (8.7-11.7); NRBC-AUTO% 0.2 % (0.0-0.2); PLATELET CLUMPS FLAG 10 (0-99); PLATELET COUNT 164 10^3/uL (150-400); RED BLOOD CELL COUNT 3.73 10^6/uL (4.18-5.33)
[2016-06-21 05:40] LABS: LEFT SHIFT FLG 120 (0-99)
[2016-06-21 06:13] LABS: SCAN NEGATIVE
[2016-06-21] MEDS: NS 1,000 ML IV SCH ×2 (09:13→17:41)
[2016-06-21] MEDS: FAMOTIDINE 20 MG/NACL 50 ML IV SCH ×2 (09:19→20:45)
[2016-06-21] MEDS: POTASSIUM Cl (KCl) 100 ML IV SCH ×3 (09:25→12:53)
[2016-06-21] MEDS: ENOXAPARIN 40 MG/0.4 ML SYR SC SCH (09:32)
--- NOTE | 2016-06-21 10:34 | SOAPPROG ---
SOAP Progress Note Assessment/Plan: Assessment: 76 yo F POD#4 s/p ex-lap sigmoid colectomy c diverting loop ileostomy Pain controlled Encouraged ambulation and IS CV stable off pressors Continue NPO - sips and chips ok Awaiting return of bowel function Wound/ostomy nurse for ostomy education and management IV Zosyn for gross contamination Dispo:. Continue inpatient until return of bowel function. Seen c Dr. Allen S: feeling well. pain controlled. no nausea, fevers. no flatus or stool from ileostomy. hallucinations yesterday, improved O: laying in bed, comfortable, NAD No increased wob, ctab rrr Hypoactive BS, softly distended. Nontender to light palpation. Ileostomy pink with good profile, no stool or gas in bag. midline dressing with serous staining. no active drainage from incision - will monitor Objective: Vital Signs Temp Pulse Resp BP Pulse Ox 36.3 C 70 16 133/75 H 93 06/21/16 08:00 06/21/16 10:00 06/21/16 10:00 06/21/16 08:00 06/21/16 10:00 Microbiology 06/17/16 15:11 Gram Stain - Final Peritoneal Fluid - Aspirate Laboratory Results 06/21/16 05:00 06/21/16 05:00 06/20/16 06/21/16 06/22/16 05:59 05:59 05:59 Intake Total 2252.5 2650 Output Total 990 835 Balance 1262.5 1815 PT 14.9 SEC (12.0-15.0) 06/17/16 13:30 INR 1.17 (0.83-1.16) H 06/17/16 13:30 ICD10 Worksheet Patient Problems: Problems Problem Status Onset Bowel perforation Acute Severe sepsis Acute
[2016-06-21] MEDS: LEVOTHYROXINE 100 MCG TAB PO SCH (10:50)
[2016-06-21] MEDS: ATORVASTATIN CALCIUM 20 MG TAB PO SCH (10:50)
--- NOTE | 2016-06-21 13:07 | WOCRNPDOC ---
WOCRN Advanced Assessment Note - Skin Integrity Problem, Advanced Assess Abdomen Surgical Wound/Incision Dressing Type: Open to Air Closure Description: [place], Approximated Exudate Amount: Scant Exudate Color: Reddish/Yellow Exudate Characteristic(s): Serosanguinous Integumentary Issue Intervention: Dressing Applied Laura Wound Tissue: Ecchymotic, Intact Laura Wound Swelling: Mild Site Odor: None Skin Integrity Problem Comment: Midline abdominal incision w/ intact, approximated jim. Scant serosanguinous drainage in mid-proximal aspect of incision. Scattered ecchymosis along incision, w/ no erythema noted. Dressing applied by student YASMIN Littlejohn, and report given to adult live in caregiverYASMIN Ge. - Ileostomy Assessment, Advanced Right Lower Abdomen Ileostomy Ileostomy Appliance Intact: Yes Ileostomy Appliance Currently in Use: Two Piece Flat, 2 1/4, Moldable Ileostomy Accessory: Barrier Ring (cut in half, the rolled out into circular ring.) Stoma Color: Purple, Red Stoma Turgor: Moist, Shiny (in proximal 1/2 of stoma), Friable Stoma Shape: Round Stoma Height: Protruding Mucocutaneus Junction: Intact Ileostomy Effluent: Serosangenous, Thin Ileostomy Size - Head-to-Toe Length X Width X Depth (cm): [id number] Ileostomy Details: Loop Peristomal Skin: Intact Ileostomy Comment/Treatment Details: Ostomy pouching system changed at the bedside w/ patient's observing. The proximal half of the stoma is red and moist, w/ good turgor and friable tissue. The distal half remains red/ purple w/ a slightly dusky appearance. Tissue did bleed some during cleaning, indicating perfusion. Stoma does not appear necrotic. No significant output reported by nursing, and only minimal serosanguinous output during assessment. Surgeon and PA are aware of this finding. Provided boac-bf-aign teaching during appliance change, w/ patient noticeably drowsy. She asked some questions during the assessment, but was evidently fatigued. Her Ed asked some questions , and was concerned about supplies being ordered. [facility] nurse will follow up with case management this week to determine if patient is being discharged home with home health or to a senior care facility, which will dictate how and when supplies are ordered. [facility] nursing will continue to follow patient during her stay to monitor stoma and patient readiness for teaching. Report given to adult live in caregiverYASMIN Ge.
[2016-06-21] MEDS: ALTEPLASE 2 MG VIAL IV PRN (16:43)
[2016-06-22] MEDS: PIPERACILLIN/TAZO 3.375 GM/DEX 50 ML IV SCH ×3 (00:14→12:14)
[2016-06-22] MEDS: NS 1,000 ML IV SCH (04:54)
[2016-06-22] MEDS: FAMOTIDINE 20 MG/NACL 50 ML IV SCH ×2 (10:08→21:19)
[2016-06-22] MEDS: LEVOTHYROXINE 100 MCG TAB PO SCH (10:08)
[2016-06-22] MEDS: ENOXAPARIN 40 MG/0.4 ML SYR SC SCH (10:08)
[2016-06-22] MEDS: D5W 1/2 NS W/ 20 KCl/L 1,000 ML IV SCH (10:30)
[2016-06-22] MEDS: morphINE PCA 30 MG/30 ML PCA IV PRN (10:53)
[2016-06-22] MEDS: ATORVASTATIN CALCIUM 20 MG TAB PO SCH ×2 (11:09→21:19)
--- NOTE | 2016-06-22 13:28 | SOAPPROG ---
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 Zosyn. Culture grew klebsiella and pseudomonas FEN: clear liquid diet. fluids changed to d5 1/2NS c 20K GI: awaiting return of bowel function. Wound/ostomy nurse for ostomy education and management : d/c killian Dispo: Continue inpatient until return of bowel function. Seen c Dr. Allen S: feeling well. pain controlled. no nausea, fevers. no flatus or stool from ileostomy. able to walk more yesterday O: sitting up in chair, comfortable, NAD No increased wob, ctab rrr Hypoactive BS, softly distended. Nontender to light palpation. Ileostomy pink with good profile, no stool or gas in bag. midline dressing with serous staining. no active drainage from incision - will monitor 06/22/16 13:21 Objective: Vital Signs Temp Pulse Resp BP Pulse Ox 36.3 C 79 20 151/83 H 90 L 06/22/16 12:00 06/22/16 12:00 06/22/16 12:00 06/22/16 12:00 06/22/16 12:00 Microbiology 06/17/16 15:11 Mycobacterial Smear (DEJA) - Final Peritoneal Fluid - Aspirate 06/17/16 15:11 Gram Stain - Final Peritoneal Fluid - Aspirate Laboratory Results 06/21/16 05:00 06/21/16 05:00 06/21/16 06/22/16 06/23/16 05:59 05:59 05:59 Intake Total 2650 2682 Output Total 639 021 6386 Balance 1815 2222 -1230 PT 14.9 SEC (12.0-15.0) 06/17/16 13:30 INR 1.17 (0.83-1.16) H 06/17/16 13:30 ICD10 Worksheet Patient Problems: Problems Problem Status Onset Bowel perforation Acute Severe sepsis Acute
[2016-06-22] MEDS: PIPERACILLIN/TAZO 4.5 GM/DEX 100 ML IV SCH ×2 (17:13→23:40)
[2016-06-22] MEDS: ALTEPLASE 2 MG VIAL IV PRN (17:17)
--- NOTE | 2016-06-22 20:05 | GCON ---
[f rep st] CONSULTATION INFECTIOUS DISEASE CONSULTATION DATE OF CONSULTATION: 06/22/2016 REFERRING PHYSICIAN: Myra Allen MD REASON FOR CONSULTATION: Klebsiella bacteremia and abdominal abscess. HISTORY OF PRESENT ILLNESS: A 76-year-old woman who had a pelvic mass subsequently found to have ov enrique carcinoma who underwent a total abdominal hysterectomy and bilateral salpingo-oophorectomy who postoperatively developed abdominal pain, confusion and vomiting and presented to the emergency neo on 06/17/2016, where she underwent a CT scan that showed the presence of air and perforation in th e sigmoid colon. The patient was admitted on the same day and was found to have a blood pressure in 80s/60 with a heart rate of 130 and hypoxia. The patient was given fluids and started on IV antibi otics, including ertapenem 1 g, and patient went to the OR at 1600 approximately and underwent an ex ploratory laparotomy with colon resection, lysis of adhesions, and diverting loop ileostomy. The robin byers reports postoperatively that her abdominal pain continues to improve and she feels stronger. She is ambulating about the halls but she was advanced to a liquid diet for the first time today and she does describe an appetite. There has been no gas or stool from the ileostomy to date. Blood c ultures were obtained on admission and 1 of 2 grew Klebsiella. Also, peritoneal fluid intraoperativ corazon was cultured and showed both a foster susceptible pseudomonas and Klebsiella. Intraoperatively, th e patient was found to have liquid stool in the peritoneal cavity. PAST MEDICAL HISTORY: Hypothyroidism, ovarian cancer, diverticulosis, hyperlipidemia and uterine pr olapse. PAST SURGICAL HISTORY: Total abdominal hysterectomy, bilateral salpingo-oophorectomy, and now colon resection and diverting ileostomy. SOCIAL HISTORY: Nonsmoker. No alcohol or IV drug use. She is . She is from [place]. Her only travel was to [place] for 2 months in the winter which is a typical trip for her and her rustand. FAMILY HISTORY: Negative for ovarian cancer. ALLERGIES: NKDA. MEDICATIONS: Zosyn 3.375 g IV q.6 started 06/18, Zofran, Narcan, morphine, Synthroid, Pepcid, Loven ox, Benadryl, Lipitor. REVIEW OF SYSTEMS: A complete 10-point review of systems was performed and is negative except as me ntioned in the HPI. PHYSICAL EXAMINATION: VITAL SIGNS: Blood pressure 160/93, heart rate 84, respiratory rate 16, satu ration 98% on 2 L, temperature 36.3, T-max over her whole hospital course was 37.7. GENERAL: This is a pleasant elderly woman, sitting in bed in no acute distress. HEENT: Pupils are reactive bilat erally. Oropharynx: Dry mucous membranes. NECK: Supple. No lymphadenopathy. CARDIOVASCULAR: R egular rate and rhythm. No murmur. CHEST: Clear to auscultation but shallow inspiratory effort. ABDOMEN: Mildly distended with occasional bowel sounds present but decreased overall. Midline inci milagro had dressing in place. Her ostomy on the right lower quadrant appeared healthy with brown liqu id in the bag. OUMOU drain with serosanguineous fluid. Abdomen not tender. : No Fuentes. SKIN: No rashes. LINES: Patient had a right IJ triple-lumen catheter without erythema or swelling. LABORATORY: White count 11.2, hematocrit 32, platelets 164, 85% neutrophils. Admission white count was low at 2.1. Creatinine 0.5, within the normal range throughout the hospital course. AST 44, A LT 36, total bilirubin 1.1, albumin 1.8. Blood cultures: 1 of 2 sets on June 17 growing Klebsiell a pneumoniae only resistant to ampicillin. Peritoneal fluid from June 17 is growing Klebsiella and pseudomonas. ASSESSMENT AND PLAN: A 76-year-old woman with recent diagnosis of ovarian cancer status post total abdominal hysterectomy, bilateral salpingo-oophorectomy whose course was complicated by a bowel perf oration. Unknown whether it is due to complication related from her surgery versus diverticular dis ease. Notably, pathology demonstrated evidence of diverticulitis. Perforation was complicated by p eritonitis and bacteremia. 1. Peritonitis, polymicrobial Klebsiella and pseudomonas were identified on cultures. 2. Klebsiella bacteremia secondary to peritonitis. 3. Peritonitis secondary to bowel perforation. RECOMMENDATIONS: 1. Repeat blood cultures to document clearance of Klebsiella. 2. Patient still with minimal p.o. intake and minimal bowel function therefore would continue on IV antibiotics at this point. Would increase Zosyn dosing for pseudomonal coverage at 4.5 g IV q.6. 3. If blood cultures establish clearance of bacteremia and patient with continued improved abdomina l symptoms and advance diet could consider transition to oral levofloxacin and metronidazole to comp lete her therapy. But, also did discuss the potential need for IV antibiotics and PICC line placeme nt with the patient and her at bedside. Thank you for this consultation. We will continue to follow on a daily basis. /[id number]/MODL
[2016-06-23] MEDS: D5W 1/2 NS W/ 20 KCl/L 1,000 ML IV SCH (02:18)
[2016-06-23] MEDS: PIPERACILLIN/TAZO 4.5 GM/DEX 100 ML IV SCH ×4 (05:10→23:35)
[2016-06-23 06:00] LABS: % IMMATURE GRANULYOCYTES 1.2 % (0.0-1.1); ABSOLUTE IMMATURE GRANULOCYTES 0.09 10^3/uL (0.00-0.10); ADD DIFF? NO; ADD MORPH? NO; ADD SCAN? YES; FRAGMENT RBC FLAG 0 (0-99); HEMATOCRIT 35.1 % (38.0-47.0); HEMOGLOBIN 11.9 g/dL (12.6-16.3); LIPEMIA HEMOLYSIS FLAG 90 (0-99); MEAN CELL HEMOGLOBIN 28.8 pg (27.9-34.1); MEAN CELL HEMOGLOBIN CONCENTR. 33.9 g/dL (32.4-36.7); MEAN PLATELET VOLUME 9.4 fL (8.7-11.7); PLATELET CLUMPS FLAG 0 (0-99); PLATELET COUNT 194 10^3/uL (150-400); RED BLOOD CELL COUNT 4.13 10^6/uL (4.18-5.33)
[2016-06-23 06:01] LABS: ATYPICAL LYMPHOCYTE FLAG 140 (0-99); LEFT SHIFT FLG 200 (0-99)
[2016-06-23 06:22] LABS: ANION GAP 4 mEq/L (8-16); CARBON DIOXIDE 29 mEq/l (22-31); CHLORIDE 101 mEq/L (97-110); CREATININE 0.4 mg/dL (0.6-1.0); GLOMERULAR FILTRATION RATE > 60; GLUCOSE 139 mg/dL (70-100); SODIUM 134 mEq/L (134-144)
[2016-06-23 06:30] LABS: SCAN POSITIVE
[2016-06-23 06:36] LABS: POTASSIUM 2.5 mEq/L (3.5-5.2)
[2016-06-23 06:37] LABS: PLATELET ESTIMATE ADEQUATE (ADEQ)
[2016-06-23 06:39] LABS: TOXIC GRANULATION PRESENT
[2016-06-23] MEDS: D5W 1/2 NS W/ 40 KCl/L 1,000 ML IV SCH ×2 (07:44→23:29)
[2016-06-23] MEDS: ENOXAPARIN 40 MG/0.4 ML SYR SC SCH (08:27)
[2016-06-23] MEDS: LEVOTHYROXINE 100 MCG TAB PO SCH (08:29)
[2016-06-23] MEDS: FAMOTIDINE 20 MG/NACL 50 ML IV SCH ×2 (08:30→20:37)
[2016-06-23] MEDS ORDERED: PROTOCOL POTASSIUM 1 DOSE MISC PRN (08:38)
[2016-06-23] MEDS ORDERED: POTASSIUM CL 10 MEQ TAB PO ONE (09:06)
[2016-06-23] MEDS: POTASSIUM Cl (KCl) 50 ML IV SCH ×5 (09:59→19:07)
[2016-06-23] MEDS: KETOROLAC 15 MG/1 ML SDV IVP SCH ×3 (11:17→23:35)
[2016-06-23 16:03] LABS: ANION GAP 3 mEq/L (8-16); CARBON DIOXIDE 31 mEq/l (22-31); CHLORIDE 99 mEq/L (97-110); CREATININE 0.4 mg/dL (0.6-1.0); GLOMERULAR FILTRATION RATE > 60; GLUCOSE 137 mg/dL (70-100); POTASSIUM 3.4 mEq/L (3.5-5.2); SODIUM 133 mEq/L (134-144)
[2016-06-23] MEDS: OXYCODONE/APAP 5/325 TAB PO PRN (16:26)
--- NOTE | 2016-06-23 18:16 | PCMIDPN ---
Assessment/Plan: Assessment: peritonitis following sigmoid colon rupture after ovarian cancer surgery. Patient is doing better. No new issues or events. Bacteremia as well with sensitive klebsiella. Covered with Zosyn monotherapy given the italo contamination. Plan to continue this management. Current iliostomy stable. No changes in recommendations. Plan: 1) Continue Zosyn monotherapy. 2) Follow clinical course. Subjective: Patient is resting comfortably in her bed. No new events. Remians afebrile. Objective: Zosyn #5 Vital Signs Temp Pulse Resp BP Pulse Ox 36.4 C 71 16 135/74 H 95 06/23/16 17:43 06/23/16 17:43 06/23/16 17:43 06/23/16 17:43 06/23/16 17:43 Microbiology 06/17/16 15:11 Gram Stain - Final Peritoneal Fluid - Aspirate Laboratory Results 06/23/16 05:34 06/23/16 15:00 06/22/16 06/23/16 06/24/16 05:59 05:59 05:59 Intake Total 2682 1100 1400 Output Total 460 2750 1755 Balance 9492 -6539 -775 - Physical Exam General Appearance: WD/WN, alert, no apparent distress, non-toxic Respiratory: lungs clear, normal breath sounds, No respiratory distress Cardiac/Chest: regular rate, rhythm, No tachycardia Abdomen: soft, distended, tender (mildly), No mass Skin: normal color, warm/dry, No rash ICD10 Worksheet Patient Problems: Problems Problem Status Onset Bowel perforation Acute Severe sepsis Acute
[2016-06-23] MEDS: ATORVASTATIN CALCIUM 20 MG TAB PO SCH (20:37)
[2016-06-23 22:51] LABS: POTASSIUM 3.2 mEq/L (3.5-5.2)
[2016-06-23] MEDS ORDERED: POTASSIUM CL 20 MEQ TAB PO ONE (23:00)
[2016-06-24] MEDS: KETOROLAC 15 MG/1 ML SDV IVP SCH ×3 (05:21→17:46)
[2016-06-24] MEDS: PIPERACILLIN/TAZO 4.5 GM/DEX 100 ML IV SCH (05:21)
[2016-06-24 06:08] LABS: POTASSIUM 3.3 mEq/L (3.5-5.2)
[2016-06-24] MEDS ORDERED: POTASSIUM CL 10 MEQ TAB PO ONE ×2 (07:04→20:50)
[2016-06-24] MEDS: OXYCODONE/APAP 5/325 TAB PO PRN ×2 (07:28→15:12)
[2016-06-24] MEDS: ENOXAPARIN 40 MG/0.4 ML SYR SC SCH (08:43)
[2016-06-24] MEDS: FAMOTIDINE 20 MG/NACL 50 ML IV SCH ×2 (08:46→20:51)
[2016-06-24] MEDS: LEVOTHYROXINE 100 MCG TAB PO SCH (08:46)
--- NOTE | 2016-06-24 09:07 | PCMIDPN ---
Assessment/Plan: # Peritonitis following sigmoid perforation s/p bilateral oophorectomy and hysterectomy for ovarian cancer. Course also complicated by Klebsiella bacteremia. 06/22 blood cultures without growth today. Peritoneal cultures showed Pseudomonas and Klebsiella both susceptible to fluoroquinolones. S/p washout and ileostomy. OUMOU with serosang drainage. WBC normal and AF. Stool in ileostomy. 06/22 blood cultures without growth today --Change to oral levofloxacin 750 mg daily plus metronidazole 500 mg three times daily, patient appears to have source control. Would give antibiotics through 07/02. CrCl 58 therefore daily dosing of FQ okay --consider DC R-IJ now that transition to PO antibiotics --DC Zosyn meds zosyn 4.5gm IV q6 #6 Microbiology 06/17/16 15:11 Peritoneal Fluid - Aspirate Gram Stain - Final Klebsiella Pneumoniae Ssp Pneu Pseudomonas Aeruginosa 06/17/16 13:30 Blood Cx 1/2 Klebsiella Pneumoniae 06/22/16 05:30 Blood Cx (2) NGTD Subjective: feeling well no c/o no pain Objective: Vital Signs Temp Pulse Resp BP Pulse Ox 36.3 C 70 18 142/76 H 95 06/24/16 07:13 06/24/16 07:13 06/24/16 07:13 06/24/16 07:13 06/24/16 07:13 Microbiology 06/17/16 15:11 Gram Stain - Final Peritoneal Fluid - Aspirate Laboratory Results 06/23/16 05:34 06/24/16 05:25 06/23/16 06/24/16 06/25/16 05:59 05:59 05:59 Intake Total 1100 1650 Output Total 2750 3935 Balance -1650 -2285 - Physical Exam General Appearance: alert, no apparent distress Respiratory: lungs clear, No accessory muscle use Neck: supple Cardiac/Chest: regular rate, rhythm Extremities: No pedal edema Abdomen: non-tender, soft, other (Stool in ileostomy, mild distention, midline incision without erythema or drainage some bruising along the incision line, left OUMOU drain with serosanguineous fluid) Skin: No rash - Line/s other Lines: other (Right IJ), No drainage, No erythema ICD10 Worksheet Patient Problems: Problems Problem Status Onset Bowel perforation Acute Severe sepsis Acute
[2016-06-24] MEDS: ONDANSETRON 4 MG/2 ML VIAL IVP PRN (10:43)
--- NOTE | 2016-06-24 12:22 | SOAPPROG ---
SOAP Progress Note Assessment/Plan: Assessment: 76 yo F s/p ex-lap sigmoid colectomy c diverting loop ileostomy Neuro: transition to PO pain meds Resp: encouraged ambulation and IS CV: stable Heme/ID: Zosyn - transition to PO per ID. Culture grew klebsiella and pseudomonas FEN: Regular diet GI: + return of bowel function. Wound/ostomy nurse for ostomy education and management : voiding spontaneously ? seroma v abscess at midline incision - will pop several stitches later today Dispo: Consider SNF after DC, case management to see. Seen c Dr. Allen S: feeling well. tired, but walking several times per day. O: sitting up in chair, comfortable, NAD No increased wob + BS, soft,nondistended. Nontender. Ileostomy pink with good profile, + stool and gas in bag. midline dressing with serous staining. Objective: Vital Signs Temp Pulse Resp BP Pulse Ox 36.6 C 78 16 128/66 H 90 L 06/24/16 10:47 06/24/16 10:47 06/24/16 10:47 06/24/16 10:49 06/24/16 10:47 Microbiology 06/17/16 15:11 Gram Stain - Final Peritoneal Fluid - Aspirate Laboratory Results 06/23/16 05:34 06/24/16 05:25 06/23/16 06/24/16 06/25/16 05:59 05:59 05:59 Intake Total 1100 1650 Output Total 2750 3935 Balance -1650 -2285 PT 14.9 SEC (12.0-15.0) 06/17/16 13:30 INR 1.17 (0.83-1.16) H 06/17/16 13:30 ICD10 Worksheet Patient Problems: Problems Problem Status Onset Bowel perforation Acute Severe sepsis Acute
[2016-06-24] MEDS: metroNIDAZOLE 500 MG TAB PO SCH ×2 (13:50→20:51)
--- NOTE | 2016-06-24 13:50 | WOCRNPDOC ---
[facility] Advanced Assessment Note - Ileostomy Assessment, Advanced Right Lower Abdomen Ileostomy Ileostomy Appliance Intact: Yes Ileostomy Appliance Currently in Use: Two Piece Flat, 2 1/, Moldable Stoma Color: Red Stoma Turgor: Moist Stoma Shape: Round Stoma Height: Protruding Mucocutaneus Junction: Intact Ileostomy Effluent: Fecal, Thin, Liquid Ileostomy Details: Loop Peristomal Skin: Intact Ileostomy Comment/Treatment Details: Ostomy appliance change at the bedside this afternoon, with patient's in attendance. Stoma red, moist, and protruding. There was a thin, superfical layer of loose, necrotic tissue on the margins of the stoma, which was removed w/ a wet washcloth. Laura-stomal skin is intact. Since last assessment on 06/21, stoma has begun producing thin, liquid fecal output. No flatus in bag r/t filter on the pouch. Patient also reporting that abdomen is less tender. She was alert and awake for both the assessment and pouching system change today, and asking specific questions about ostomy care. Of particular concern to her is support she will recieve after discharge from this hospital. Advised both her and her to discuss this with case management, as this could be a deciding factor in choosing a rehab facility. Wound/construction ironworker helper will continue to provide both teaching and ostomy care while she is inpatient. Report given to director supply Mame.
[2016-06-24] MEDS: D5W 1/2 NS W/ 40 KCl/L 1,000 ML IV SCH (15:12)
--- NOTE | 2016-06-24 16:25 | WOCRNPDOC ---
[facility] Advanced Assessment Note - Skin Integrity Problem, Advanced Assess Abdomen Surgical Wound/Incision Dressing Type: ABD Pad, Plain Packing Dressing Description: Saturated (along distal aspect) Closure Description: Oleksandr, Not Approximated (2.6wbp4pm dehiscence in proximal 1/3 of incision) Exudate Color: Reddish/Yellow Exudate Characteristic(s): Bloody, Purulent Integumentary Issue Intervention: Dressing Applied Laura Wound Tissue: Erythema (mild) Wound Bed Color: Red Site Odor: Slight Skin Integrity Problem Comment: Per request of surgeon, an incisional wound vac dressing was placed along the length of patient's midline abdominal incision. In the proximal 1/3 of the incision, oleksandr have been removed and there is a [id number] area of dehiscence. Packing placed by MITZY earlier was removed, and was noted to have purulent exudate. Drape was placed up to the incision line on both sides, and oleksandr were covered w/ Adaptic Touch contact layer. 1 continuous piece of black granulofoam dressing was placed over the length of the incision, and covered w/ drape. Vac set at 125mmHg low, continuous suction. No leaks identified. counseling center directorYASMIN Vilchis present during dressing change and assisting. Report given to MITZY Malone.
[2016-06-24 18:36] LABS: POTASSIUM 3.5 mEq/L (3.5-5.2)
[2016-06-24] MEDS: ATORVASTATIN CALCIUM 20 MG TAB PO SCH (20:51)
[2016-06-25] MEDS: KETOROLAC 15 MG/1 ML SDV IVP SCH ×5 (00:19→23:29)
[2016-06-25] MEDS: D5W 1/2 NS W/ 40 KCl/L 1,000 ML IV SCH ×2 (04:57→20:04)
[2016-06-25] MEDS: metroNIDAZOLE 500 MG TAB PO SCH ×3 (05:03→20:39)
[2016-06-25] MEDS: FAMOTIDINE 20 MG/NACL 50 ML IV SCH (08:46)
[2016-06-25] MEDS: LEVOTHYROXINE 100 MCG TAB PO SCH (08:46)
[2016-06-25] MEDS: ENOXAPARIN 40 MG/0.4 ML SYR SC SCH (08:46)
[2016-06-25] MEDS: OXYCODONE/APAP 5/325 TAB PO PRN ×2 (08:58→10:04)
--- NOTE | 2016-06-25 12:56 | PCMIDPN ---
Assessment/Plan: # Peritonitis following sigmoid perforation s/p bilateral oophorectomy and hysterectomy for ovarian cancer. Course also complicated by Klebsiella bacteremia. 06/22 blood cultures without growth today. Peritoneal cultures showed Pseudomonas and Klebsiella both susceptible to fluoroquinolones. S/p washout and ileostomy. OUMOU with serosang drainage. AF. Stool in ileostomy. blood cultures without growth today --Cont oral levofloxacin 750 mg daily plus metronidazole 500 mg three times daily, patient appears to have source control. Would give antibiotics through 07/02. CrCl 58 therefore daily dosing of FQ okay --DC R-IJ --call w additional questions meds, abx 7 levoflox +flagyl Microbiology 06/17/16 15:11 Peritoneal Fluid - Aspirate Gram Stain - Final Klebsiella Pneumoniae Ssp Pneu Pseudomonas Aeruginosa 06/17/16 13:30 Blood Cx / Klebsiella Pneumoniae 06/22/16 05:30 Blood Cx (2) NGTD Subjective: No c/o today; denies abdominal pain Exam General Appearance: alert, no apparent distress, very cheerful today Respiratory: lungs clear, No accessory muscle use Neck: supple Cardiac/Chest: regular rate, rhythm Extremities: No pedal edema Abdomen: non-tender, soft, Stool in ileostomy, midline incision with wound vac ( new), left OUMOU drain with serosanguineous fluid Skin: No rash Lines: Right IJ:, No drainage, No erythema but dressing off Objective: Vital Signs Temp Pulse Resp BP Pulse Ox 36.6 C 72 16 133/66 H 93 06/25/16 12:00 06/25/16 12:00 06/25/16 12:00 06/25/16 12:00 06/25/16 12:00 Microbiology 06/17/16 15:11 Gram Stain - Final Peritoneal Fluid - Aspirate Anaerobic Culture - Final Klebsiella Pneumoniae Ssp Pneu Pseudomonas Aeruginosa Laboratory Results 06/23/16 05:34 06/25/16 05:22 06/24/16 06/25/16 06/26/16 05:59 05:59 05:59 Intake Total 1650 1500 Output Total 3935 1930 300 Balance -2285 -430 -300 ICD10 Worksheet Patient Problems: Problems Problem Status Onset Bowel perforation Acute Severe sepsis Acute
--- NOTE | 2016-06-25 14:07 | SOAPPROG ---
SOAP Progress Note Assessment/Plan: Assessment: MUCH IMPROVED/ AFEBRILE/ WOUND OKAY WITH WOUND VAC IN PLACE/ URINE OUTPUT ADEQUATE / TOLERATING P.O. Plan: ADVANCED DIET / HOME IN 1-2 DAYS / CHANGE WOUND VAC ON Monday06/25/16 14:06 Objective: Vital Signs Temp Pulse Resp BP Pulse Ox 36.6 C 72 16 133/66 H 93 06/25/16 12:00 06/25/16 12:00 06/25/16 12:00 06/25/16 12:00 06/25/16 12:00 Microbiology 06/17/16 15:11 Gram Stain - Final Peritoneal Fluid - Aspirate Anaerobic Culture - Final Klebsiella Pneumoniae Ssp Pneu Pseudomonas Aeruginosa Laboratory Results 06/23/16 05:34 06/25/16 05:22 06/24/16 06/25/16 06/26/16 05:59 05:59 05:59 Intake Total 1650 1500 Output Total 3935 1930 475 Balance -2285 -430 -475 PT 14.9 SEC (12.0-15.0) 06/17/16 13:30 INR 1.17 (0.83-1.16) H 06/17/16 13:30 ICD10 Worksheet Patient Problems: Problems Problem Status Onset Bowel perforation Acute Severe sepsis Acute
[2016-06-25] MEDS: FAMOTIDINE 20 MG TAB PO SCH (20:38)
[2016-06-25] MEDS: ATORVASTATIN CALCIUM 20 MG TAB PO SCH (20:39)
[2016-06-26] MEDS: metroNIDAZOLE 500 MG TAB PO SCH ×3 (05:18→22:56)
[2016-06-26] MEDS: KETOROLAC 15 MG/1 ML SDV IVP SCH ×4 (05:18→23:00)
[2016-06-26 05:49] LABS: POTASSIUM 4.2 mEq/L (3.5-5.2)
[2016-06-26] MEDS: LEVOTHYROXINE 100 MCG TAB PO SCH (09:05)
[2016-06-26] MEDS: FAMOTIDINE 20 MG TAB PO SCH ×2 (09:05→20:28)
[2016-06-26] MEDS: OXYCODONE/APAP 5/325 TAB PO PRN ×3 (09:05→20:28)
[2016-06-26] MEDS: ENOXAPARIN 40 MG/0.4 ML SYR SC SCH (09:06)
[2016-06-26] MEDS: D5W 1/2 NS W/ 40 KCl/L 1,000 ML IV SCH (09:09)
[2016-06-26] MEDS: ONDANSETRON 4 MG/2 ML VIAL IVP PRN (12:06)
--- NOTE | 2016-06-26 12:15 | SOAPPROG ---
SOAP Progress Note Assessment/Plan: Assessment: MUCH IMPROVED/ AFEBRILE/ WOUND OKAY WITH WOUND VAC IN PLACE/ URINE OUTPUT ADEQUATE / TOLERATING P.O. Plan: ADVANCED DIET / HOME IN 1-2 DAYS / CHANGE WOUND VAC ON Monday06/25/16 14:06 06/26/16 12:14 CONTINUES TO IMPROVE/ AFEBRILE/EATING OKAY/ ABDOMEN IS SOFT AND NONTENDER WITH BOWEL SOUNDS / POSITIVE BMS AND FLATUS / PLAN IS WOUND VAC CHANGE IN THE MORNING AND HOME SOON Objective: Vital Signs Temp Pulse Resp BP Pulse Ox 36.6 C 75 18 128/75 H 91 L 06/26/16 11:54 06/26/16 11:54 06/26/16 11:54 06/26/16 11:54 06/26/16 11:54 Laboratory Results 06/23/16 05:34 06/26/16 05:07 06/25/16 06/26/16 06/27/16 05:59 05:59 05:59 Intake Total 1500 1471 Output Total 1930 2680 400 Balance -430 -1546 -400 PT 14.9 SEC (12.0-15.0) 06/17/16 13:30 INR 1.17 (0.83-1.16) H 06/17/16 13:30 ICD10 Worksheet Patient Problems: Problems Problem Status Onset Bowel perforation Acute Severe sepsis Acute
[2016-06-26] MEDS: ATORVASTATIN CALCIUM 20 MG TAB PO SCH (20:28)
[2016-06-27] MEDS: D5W 1/2 NS W/ 40 KCl/L 1,000 ML IV SCH (02:15)
[2016-06-27] MEDS: metroNIDAZOLE 500 MG TAB PO SCH ×3 (05:09→22:59)
[2016-06-27] MEDS: KETOROLAC 15 MG/1 ML SDV IVP SCH ×4 (05:09→23:00)
[2016-06-27] MEDS: LEVOTHYROXINE 100 MCG TAB PO SCH (08:44)
[2016-06-27] MEDS: ENOXAPARIN 40 MG/0.4 ML SYR SC SCH (08:44)
[2016-06-27] MEDS: FAMOTIDINE 20 MG TAB PO SCH ×2 (08:44→20:29)
[2016-06-27] MEDS: OXYCODONE/APAP 5/325 TAB PO PRN ×2 (08:52→14:04)
--- NOTE | 2016-06-27 09:51 | SOAPPROG ---
SOAP Progress Note Assessment/Plan: Assessment: 76 yo F s/p ex-lap sigmoid colectomy c diverting loop ileostomy Neuro: PO pain meds Resp: encouraged ambulation and IS CV: stable Heme/ID: Zosyn - PO antibiotics. Culture grew klebsiella and pseudomonas FEN: Regular diet GI: + return of bowel function. Wound/ostomy nurse for ostomy education and management Wound vac change MWF : voiding spontaneously Dispo: Consider SNF after DC. Seen c Dr. Allen S: feeling well. tired, but walking several times per day. O: sitting up in chair, comfortable, NAD No increased wob + BS, soft,nondistended. Nontender. Ileostomy pink with good profile, + stool and gas in bag. midline dressing with serous staining. 06/27/16 09:50 Objective: Vital Signs Temp Pulse Resp BP Pulse Ox 36.6 C 83 14 144/82 H 93 06/27/16 07:57 06/27/16 07:57 06/27/16 07:57 06/27/16 07:57 06/27/16 07:57 Laboratory Results 06/23/16 05:34 06/26/16 05:07 06/26/16 06/27/16 06/28/16 05:59 05:59 05:59 Intake Total 1471 2252 Output Total 3011 9120 Balance -1546 -1508 PT 14.9 SEC (12.0-15.0) 06/17/16 13:30 INR 1.17 (0.83-1.16) H 06/17/16 13:30 ICD10 Worksheet Patient Problems: Problems Problem Status Onset Bowel perforation Acute Severe sepsis Acute
[2016-06-27] MEDS: ATORVASTATIN CALCIUM 20 MG TAB PO SCH (20:29)
--- NOTE | 2016-06-27 22:12 | WOCRNPDOC ---
[facility] Advanced Assessment Note - Skin Integrity Problem, Advanced Assess Abdomen Surgical Wound/Incision Dressing Type: Black Vac Foam (1 piece), Wound Vac Dressing Description: Not Intact (had been removed by MITZY Monique) Exudate Amount: Minimal Exudate Color: Red Exudate Characteristic(s): Serosanguinous Integumentary Issue Intervention: Dressing Changed (1 piece black foam and Veraflo tx with 1000 ml sterile NS) Laura Wound Tissue: Erythema (at margin) Laura Wound Swelling: Mild Wound Bed Color: Red, Yellow, White Wound Bed Constitution: Granulation Tissue (horowitz 100% ), Adhered Slough ( covering fundus 100% ) Wound Edges: Attached, Well Defined Site Odor: None Site Measurement - Head-to-Toe Length X Width X Depth (cm): 19 x 4.5 x 4.8. undermining=3.9 @ 11 o'clock Skin Integrity Problem Comment: Due to proximity of midline abdominal incision site and position of ileostomy stoma, coordinated with MITZY Monique for VAC dressing change with wound care assisting, immediately prior to ileostomy care and teaching. It was decided to initiate Veraflo therapy at this dressing change , in the presence of adherent slough across the fundus of the wound. With staffing executive Joo present, Veraflo settings of 3 minutes instillation dwell time, q 2hours at -125 mmHg pressure, medium intensity were confirmed. Patient reported tolerating therapy comfortably at these settings. Will review settings tomorrow , 06/28, and Wound Care will coordinate next dressing change with Dr. Allen and team. - Ileostomy Assessment, Advanced Right Lower Abdomen Ileostomy Ileostomy Appliance Intact: No (skin barrier beginning to melt down) Ileostomy Appliance Currently in Use: Two Piece Flat, 2 1/4, Moldable Stoma Color: Brown (slightly dusky slough at distal surface; visualized with MITZY Monique), [place], Red Stoma Turgor: Moist, Friable (at distal tissue) Stoma Shape: Round Stoma Height: Protruding Slightly Mucocutaneus Junction: Intact (sutures) Ileostomy Effluent: Serosangenous Ileostomy Size - Head-to-Toe Length X Width X Depth (cm): 3 cm renee x 0.5 cm protruding height Ileostomy Details: Loop (diverting) Peristomal Skin: Intact Ileostomy Comment/Treatment Details: Removed previous pouching appliance after securing VAC dressing to protect wound from potential ileostomy leakage, which was scant at the time of care. Trimmed the medial margin of the skin barrier wafer tape to separate the appliance as much as possible from the wound. Reinforced ileostomy education via demo and discussion: Patient and pleasantly attentive. Due to involved wound care and VAC tx, did not extend ostomy education to the level of patient return demo. city editorYASMIN Ge present during care.
[2016-06-28] MEDS: metroNIDAZOLE 500 MG TAB PO SCH ×3 (05:00→22:00)
[2016-06-28] MEDS: KETOROLAC 15 MG/1 ML SDV IVP SCH (05:00)
--- NOTE | 2016-06-28 08:52 | SOAPPROG ---
SOAP Progress Note Assessment/Plan: Assessment: 76 yo F s/p ex-lap sigmoid colectomy c diverting loop ileostomy Neuro: PO pain meds Resp: encouraged ambulation and IS CV: stable Heme/ID: PO antibiotics. Culture grew klebsiella and pseudomonas FEN: Regular diet GI: + return of bowel function. Wound/ostomy nurse for ostomy education and management Wound vac change MWF OUMOU drain out today : voiding spontaneously Dispo: Likely SNF tomorrow with wound vac. Seen c Dr. Allen S: feeling well. much better. good appetite, no nausea or pain O: laying in bed, comfortable, NAD No increased wob + BS, soft,nondistended. Nontender. Ileostomy pink with good profile, + stool and gas in bag. midline vac intact to suction Objective: Vital Signs Temp Pulse Resp BP Pulse Ox 36.5 C 77 14 160/85 H 90 L 06/28/16 07:18 06/28/16 07:18 06/28/16 07:18 06/28/16 07:18 06/28/16 07:18 Microbiology 06/22/16 05:30 Blood Culture - Final Blood 06/22/16 17:13 Blood Culture - Final Blood Laboratory Results 06/23/16 05:34 06/26/16 05:07 06/27/16 06/28/16 06/29/16 05:59 05:59 05:59 Intake Total 2252 Output Total 3760 550 Balance -1508 -550 PT 14.9 SEC (12.0-15.0) 06/17/16 13:30 INR 1.17 (0.83-1.16) H 06/17/16 13:30 ICD10 Worksheet Patient Problems: Problems Problem Status Onset Bowel perforation Acute Severe sepsis Acute
[2016-06-28] MEDS: OXYCODONE/APAP 5/325 TAB PO PRN ×2 (09:27→20:07)
[2016-06-28] MEDS: LEVOTHYROXINE 100 MCG TAB PO SCH (09:28)
[2016-06-28] MEDS: FLUCONAZOLE 100 MG TAB PO SCH (09:29)
[2016-06-28] MEDS: FAMOTIDINE 20 MG TAB PO SCH ×2 (09:29→20:07)
[2016-06-28] MEDS: ENOXAPARIN 40 MG/0.4 ML SYR SC SCH (09:29)
[2016-06-28] MEDS: ONDANSETRON 4 MG/2 ML VIAL IVP PRN (12:27)
[2016-06-28] MEDS: ATORVASTATIN CALCIUM 20 MG TAB PO SCH (20:07)
[2016-06-29] MEDS: metroNIDAZOLE 500 MG TAB PO SCH ×2 (05:17→13:55)
[2016-06-29] MEDS: OXYCODONE/APAP 5/325 TAB PO PRN ×2 (08:43→12:44)
[2016-06-29] MEDS: ENOXAPARIN 40 MG/0.4 ML SYR SC SCH (08:44)
[2016-06-29] MEDS: LEVOTHYROXINE 100 MCG TAB PO SCH (08:44)
[2016-06-29] MEDS: FAMOTIDINE 20 MG TAB PO SCH (08:44)
[2016-06-29 11:20] VITALS: RESP 14
--- NOTE | 2016-06-29 11:25 | SOAPPROG ---
SOAP Progress Note Assessment/Plan: Assessment: s/p LAR with splenic flexure takedown and diverting loop ileostomy Neuro - po pain meds Resp - O2 nasal canula Cards - hemodynamic instability due to sepsis. Off pressors. GI - Full return of bowel function. Heme/ID - Will discharge home on Levaquin, Flagyl and fluconozale FEN - Regular diet Proph - Pepcid and Lovenox - lovenox requested by Dr. Klein until 07/16/2016 PT Dispo - SNF S: She is in good spirits and joking that she feels great O: Sitting in chair, moves easily to bed CTAB RRR Stool in ostomy Wound vac to suction. Edges clean. I saw a photo later and some fascial separation, some slough but overall clean Plan: 06/18/16 01:50 06/18/16 07:49 06/29/16 11:23 06/29/16 14:01 Objective: Vital Signs Temp Pulse Resp BP Pulse Ox 36.3 C 74 14 112/53 L 94 06/29/16 11:18 06/29/16 11:18 06/29/16 11:18 06/29/16 11:18 06/29/16 11:18 Microbiology 06/17/16 15:11 Mycobacterial Smear (DEJA) - Final Peritoneal Fluid - Aspirate 06/22/16 05:30 Blood Culture - Final Blood 06/22/16 17:13 Blood Culture - Final Blood Laboratory Results 06/23/16 05:34 06/26/16 05:07 06/28/16 06/29/16 06/30/16 05:59 05:59 05:59 Output Total 550 405 Balance -550 -405 PT 14.9 SEC (12.0-15.0) 06/17/16 13:30 INR 1.17 (0.83-1.16) H 06/17/16 13:30 ICD10 Worksheet Patient Problems: Problems Problem Status Onset Bowel perforation Acute Severe sepsis Acute
[2016-06-29] MEDS: FLUCONAZOLE 100 MG TAB PO SCH (11:32)
--- NOTE | 2016-06-29 14:15 | PDIAF ---
- Diagnosis Diagnosis: ovarian ca, perforated sigmoid colon Code Status: Full Code - Medication Management Discharge Medications: Medications to Continue on Transfer Levothyroxine [Synthroid 100 mcg (*)] 100 mcg PO DAILY 06/17/16 [Last Taken Unknown] Simvastatin 40 mg PO DAILY 06/17/16 [Last Taken Unknown] Enoxaparin [Lovenox 40 MG (*)] 40 mg SC DAILY #0 syr 06/29/16 [Last Taken Unknown] Fluconazole [Diflucan (*)] 200 mg PO DAILY #20 tab 06/29/16 [Last Taken Unknown] levOFLOXACIN [levAQUIN (*)] 750 mg PO DAILY AT 10AM #4 tab 06/29/16 [Last Taken Unknown] metroNIDAZOLE [Flagyl 500 mg (*)] 500 mg PO Q8HRS #4 tab 06/29/16 [Last Taken Unknown] oxyCODONE/APAP 5/325 [Percocet 5/325 (*)] 1 - 2 tab PO Q4HRS PRN #0 tab [Last Taken Unknown] 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 Fluconazole through 07/10/2016 Discharge Medications: Refer to the Discharge Home Medication list for PRN reason. - Orders Diet Recommendation: no restrictions on diet Wound Care Instructions: Change wound vac 3x per week. Check ileostomy q 2 days and prn. Change appliance at least 2 x per week Activity/Weight Bearing Restrictions: no heavy lifting pushing or pulling greater than 15 lbs until 07/27/2016 - Follow Up Care Current Providers and Referrals: Belem Gao MD [Primary Care Provider] - As per Instructions Eneida Bowens PA [Physician [employer]] - 07/11/16 (call to make an appointment)
--- NOTE | 2016-06-29 15:49 | WOCRNPDOC ---
[facility] Advanced Assessment Note - Skin Integrity Problem, Advanced Assess Abdomen Surgical Wound/Incision Dressing Type: Black Vac Foam (one piece), Wound Vac Exudate Amount: Scant Exudate Characteristic(s): Serosanguinous Integumentary Issue Intervention: Dressing Applied ([id number] gauze and abd) , Dressing Removed Laura Wound Tissue: Raw (at 10 o'clock (margin only) small raw edge), Intact (98% ) Laura Wound Swelling: None Wound Bed Color: Red, Coronel Wound Bed Constitution: Granulation Tissue (100% on the horowitz; 30% in the base) , Fascia, Ligament Wound Edges: Well Defined Site Odor: None Skin Integrity Problem Comment: At request of Dr. Allen, removed wound vac and placed a [id number] dressing in preparation for patient's discharge to the [facility] today. Wound base is significantly furniture cleaner since Monday, and patient tolerated wound care with minimum discomfort. Addressed her questions concerning what to anticipate in post-DC plan of care. flight data technician Michelle present , assisting. - Ileostomy Assessment, Advanced Right Lower Abdomen Ileostomy Ileostomy Appliance Intact: No (peristomal skin exposed at distal aspect ) Ileostomy Appliance Currently in Use: Two Piece Flat, 2 1/4, Moldable Stoma Color: Red Stoma Turgor: Moist Stoma Shape: Round Stoma Height: Protruding Slightly Mucocutaneus Junction: Intact (sutures) Ileostomy Effluent: Fecal, Thin, Bile Ileostomy Details: Loop Peristomal Skin: Intact Ileostomy Comment/Treatment Details: Changed appliance, flight data technicianYASMIN Martinez assisting, and reinforced ostomy education to patient and staff editor. Responded to questions concerning post-DC plan for ostomy care and discussed community support, e.g the [employer]. (Printed information provided previously.)
[2016-06-29 17:11] VITALS: BP 144/74; PULSE 82; TEMP 98.1; O2SAT 92
--- NOTE | 2016-06-29 17:15 | GDS ---
[f rep st] DISCHARGE SUMMARY ADMITTING DIAGNOSIS: Sigmoid colon perforation. SECONDARY DIAGNOSES: Severe sepsis, resolved; newly diagnosed ovarian cancer; hypothyroidism; hyper lipidemia. REASON FOR ADMISSION: The patient is a 76-year-old woman who recently underwent a total abdominal h ysterectomy with bilateral salpingo-oophorectomy with Dr. Staci Klein. She presented to the emerge ncy room several days after her surgery complaining of severe abdominal pain and vomiting. She was found to have a microperforation of her sigmoid colon on CT scan. She was admitted for surgical int ervention, pain control, observation. HOSPITAL COURSE: She was taken to the operating room on 06/17/16, by Dr. Myra Allen for explorator y laparotomy, low anterior resection with diverting loop ileostomy. She had an NG tube placed, a OUMOU drain placed, and a Fuentes catheter. Following the surgery, she was hemodynamically unstable and re mained on pressors. These were weaned off by postoperative day number 2. Her NG tube was removed o n postoperative day number 2. Final pathology from the surgery revealed chronic and acute diverticu litis with perforation. Microbiology from the surgery revealed Klebsiella, Pseudomonas, and yeast. Infectious Disease was consulted on postoperative day number 5. She was advanced to a clear liquid diet. On postoperative day number 7, she had full return of bowel function through her ileostomy a nd was advanced to regular diet. On this day, she had serous drainage from her midline incision. T he jim were removed and a wound VAC was placed. Through her hospital stay, she received educati on and management by the wound ostomy nurse. Her OUMOU drain was removed on postop day number 12, and she was ready for discharge on postop day number 13 to a correction facility with a wound VAC i n place. CONDITION: She is being discharged home in stable condition. Pain is controlled with oral pain med ication. She is tolerating regular diet and ambulating independently. DISCHARGE MEDICATIONS: She was provided prescriptions for Lovenox, oral fluconazole, levofloxacin, Flagyl, and Percocet. She was instructed to resume home medications. Please see EMR for further de tail. DISCHARGE INSTRUCTIONS AND FOLLOWUP: Instructions were provided for ostomy care. Wound VAC will be changed 3 times per week. She will follow up with MITZY Malone, in 10 days and understands to call our office with any worsening symptoms, questions, or concerns. /[id number]/MODL
== END 2016-06-29 17:36 | DRG 854 ==
LOC: F2N 17:53 → F3E 06-20 13:12
PROVIDERS: ADMIT Surgery; ATTEND Surgery
DX: A41.89 Other specified sepsis (principal); K57.00 Diverticulitis of small intestine with perforation and abscess without bleeding; C56.9 Malignant neoplasm of unspecified ovary; R65.20 Severe sepsis without septic shock; E78.5 Hyperlipidemia, unspecified; B96.1 Klebsiella pneumoniae [K. pneumoniae] as the cause of diseases classified elsewhere; B96.5 Pseudomonas (aeruginosa) (mallei) (pseudomallei) as the cause of diseases classified elsewhere; E03.9 Hypothyroidism, unspecified; Z90.722 Acquired absence of ovaries, bilateral
CPT/HCPCS: 82947-QW; 96365; 97112-GP; 97116-GP; 97162-GP; 97165-GO; 97530-GO; 97530-GP; 97535-GO; G8978-GP-CL; G8979-GP-CJ; G8987-GO-CL; G8988-GO-CI; J0610; J1170; J1335; J1650; J1885; J2270; J2405; J2543; J2997; P9047

== ENCOUNTER → 2016-07-12 | Outpatient (CLI) | payer OTHER ==
[~2016-07-12] MED LIST changes: -IOPAMIDOL (ISOVUE-300) 100 ML BTL IV ONE; +IOPAMIDOL (ISOVUE-300) 100 ML BTL ONE
== END ==
LOC: FIMAGING 12:35
PROVIDERS: ATTEND Internal Medicine Infectious Disease
DX: K57.32 Diverticulitis of large intestine without perforation or abscess without bleeding (principal); K63.1 Perforation of intestine (nontraumatic)
CPT/HCPCS: 74177; Q9967

== ENCOUNTER 2016-10-10 08:30 | Day surgery (SDC) | payer OTHER ==
--- NOTE | 2016-10-09 11:27 | GHP ---
[f rep st] PREOP HISTORY AND PHYSICAL DATE OF ADMISSION: 10/10/2016 HISTORY OF PRESENT ILLNESS: The patient is a 76-year-old woman with history of hysterectomy and BSO , ovarian cancer. She developed a sigmoid perforation. I took her to the operating room for a sigm oidectomy. She had an open wound which has nearly healed. She presents to discuss port placement. PAST MEDICAL HISTORY: Includes hyperlipidemia, hypothyroidism, history of skin cancer, left kidney mass. PAST SURGICAL HISTORY: Includes thyroidectomy, radical abdominal hysterectomy, and bowel resection. FAMILY HISTORY: Hypertension, coronary artery disease, throat cancer. SOCIAL HISTORY: She is . She is a never smoker. She drinks approximately 4 glasses of wine a week. REVIEW OF SYSTEMS: A 10-point review of systems negative. PHYSICAL EXAMINATION: GENERAL: Pleasant, well-nourished, well-groomed woman. HEENT: Normocephali c. No gross hearing deficits. Mucous membranes moist. Pupils equal and round. No scleral icterus . LUNGS: Clear to auscultation bilaterally. No increased work of breathing. CARDIAC: Regular ra te. No peripheral edema. ABDOMEN: Bowel sounds present. Ostomy in place. EXTREMITIES: Moves al l extremities well. MUSCULOSKELETAL: Normal gait. Normal nails. PSYCH: Mood and affect normal. NEURO: Grossly intact. IMPRESSION AND PLAN: The patient is a 76-year-old who will require a port for chemotherapy. The ri sks and benefits including but not limited to stroke, heart attack, , blood clots, infection, b leeding, pneumothorax were all discussed. She had her questions answered to her satisfaction and si gned the informed consent. /[id number]/MODL
[2016-10-10] MEDS ORDERED: BUPIVACAINE 0.5% 30 ML SDV ONE (08:43)
[2016-10-10] MEDS ORDERED: ceFAZolin 2 GM/DEXTROSE 100 ML IV ONE (09:13)
[2016-10-10] MEDS ORDERED: LR 1,000 ML IV ONE (09:14)
--- NOTE | 2016-10-10 09:50 | PDHPUP ---
History & Physical Update H&P update statement: This history and physical update is based on an assessment of the patient which was completed after admission or registration (within 24 hours), but prior to the surgery/procedure. H&P update: H&P reviewed & patient examined, no change in patient's condition since H&P completed
--- NOTE | 2016-10-10 10:11 | POSTOPPROG ---
Post Op Note Date of Operation: 10/10/16 Surgeon: Myra Allen Anesthesiologist: felicita Pre-op Diagnosis: ovarian cancer Post-op Diagnosis: same Indication: 76 yo with ovarian cancer Procedure: port placement Inf/Abcess present in the surg proc area at time of surgery?: No Specimen(s): none
--- NOTE | 2016-10-10 10:23 | PDANEPAE ---
ANE History of Present Illness 76 year old female presents for port placement for chemotherapy. ANE Past Medical History - Cardiovascular History Hx Hypertension: No Hx Arrhythmias: No Hx Chest Pain: No Hx Coronary Artery / Peripheral Vascular Disease: No Hx CHF / Valvular Disease: No Hx Palpitations: No - Pulmonary History Hx COPD: No Hx Asthma/Reactive Airway Disease: No Hx Recent Upper Respiratory Infection: No Hx Oxygen in Use at Home: No Hx Sleep Apnea: No Sleep Apnea Screening Result - Last Documented: Negative - Neurologic History Hx Cerebrovascular Accident: No Hx Seizures: Yes Hx Dementia: No Neurologic History Comment: CHILDHOOD SEIZURES - Endocrine History Hx Diabetes: No Hypothyroid: Yes Hyperthyroid: No Obesity: no - Renal History Hx Renal Disorders: No - Liver History Hx Hepatic Disorders: No - Neurological & Psychiatric Hx Hx Neurological and Psychiatric Disorders: No - Cancer History Hx Cancer: Yes Cancer History Comment: NEW DX OVARIAN CA - Congenital Disorder History Hx Congenital Disorders: No - GI History Hx Gastrointestinal Disorders: Yes Gastrointestinal History Comment: CHRONIC CONSTIPATION. DIVERTICULOSIS - Chronic Pain History Chronic Pain: No - Surgical History Prior Surgeries: COLON RESECTION WITH ILEOSTOMY 06/17/2016. HYSTERECTOMY/BSO AT [facility]. LT THYROIDECTOMY ANE Review of Systems - Exercise capacity Exercise capacity: >=4 METS METS (RN): 4 METS ANE Patient History - Allergies Allergies/Adverse Reactions: No Known Allergies Allergy (Unverified 09/01/12 19:01) - Home Medications Home Medications: RX: Levothyroxine [Synthroid 100 mcg (*)] 100 mcg PO DAILY06 06/17/16 [Last Taken 10/10/16 0700] RX: Simvastatin 40 mg PO HS 06/17/16 [Last Taken 10/09/16 40] - NPO status NPO Since - Liquids (Date): 10/10/16 NPO Since - Liquids (Time): 07:00 NPO Since - Solids (Date): 10/09/16 NPO Since - Solids (Time): 17:00 - Smoking Hx Smoking Status: Never smoked ANE Labs/Vital Signs - Vital Signs Vital Signs: reviewed preoperatively; see RN documention for details Blood Pressure: 136/67 Heart Rate: 72 Respiratory Rate: 14 O2 Sat (%): 92 Height: 172.72 cm Weight: 62.596 kg ANE Physical Exam - Airway Neck exam: FROM Mallampati Score: Class 2 Mouth exam: normal dental/mouth exam - Pulmonary Pulmonary: no respiratory distress - Cardiovascular Cardiovascular: regular rate and rhythym - ASA Status ASA Status: II, III ANE Anesthesia Plan Anesthesia Plan: GA w LMA
[2016-10-10] MEDS ORDERED: PROPOFOL 200 MG/20 ML VIAL ONE (10:26)
[2016-10-10] MEDS ORDERED: HYDROCODONE/APAP 5/325 TAB PO PRN (10:45)
[2016-10-10] MEDS ORDERED: NALOXONE HCL 0.4 MG/ML INJ IVP PRN (10:45)
[2016-10-10] MEDS ORDERED: fentaNYL 100 MCG/2 ML INJ IVP PRN (10:45)
[2016-10-10] MEDS ORDERED: ONDANSETRON 4 MG/2 ML VIAL IVP PRN (10:45)
[2016-10-10] MEDS ORDERED: LR 500 ML IV PRN (10:45)
[2016-10-10] MEDS ORDERED: fentaNYL 100 MCG/2 ML INJ ONE (10:48)
[2016-10-10] MEDS ORDERED: DEXAMETHASONE 4 MG/ML VIAL ONE (10:51)
[2016-10-10] MEDS ORDERED: ONDANSETRON 4 MG/2 ML VIAL ONE (10:52)
[2016-10-10 12:30] VITALS: BP 155/79
[2016-10-10 12:32] VITALS: TEMP 97.9
[2016-10-10 12:33] VITALS: PULSE 63; RESP 13
[2016-10-10 13:18] VITALS: O2SAT 92
--- NOTE | 2016-10-10 14:19 | POSTANESTH ---
Post Anesthetic Evaluation Cardiovascular Status: Normal, Stable Respiratory Status: Normal, Stable Level of Consciousness/Mental Status: Can Participate in Eval Pain Control: Adequate, Prn Tx Ordered Nausea/Vomiting Control: Adequate, Prn Tx Ordered Complications Possibly Related to Anesthesia: None Noted
== END 2016-10-10 13:10 | disposition home or self-care (01) ==
LOC: FSGY 08:30
PROVIDERS: ATTEND Surgery
PROC: 02HV33Z Insertion of Infusion Device into Superior Vena Cava, Percutaneous Approach (ICD-10-PCS; principal; 2016-10-10 10:15)
PROC: 0JH60XZ Insertion of Tunneled Vascular Access Device into Chest Subcutaneous Tissue and Fascia, Open Approach (ICD-10-PCS; principal; 2016-10-10 10:15)
DX: C56.9 Malignant neoplasm of unspecified ovary (principal); E78.5 Hyperlipidemia, unspecified; E03.9 Hypothyroidism, unspecified; Z90.710 Acquired absence of both cervix and uterus; Z90.722 Acquired absence of ovaries, bilateral; Z82.49 Family history of ischemic heart disease and other diseases of the circulatory system
CPT/HCPCS: C1788; J0690; J1100; J1642; J2405; J2704; J3010

== ENCOUNTER 2016-10-31 11:45 | Emergency (ER) | payer OTHER ==
[2016-10-31 11:51] VITALS: RESP 16
--- NOTE | 2016-10-31 12:30 | EDPHY ---
H & P Stated Complaint: INCISION OPENING FROM HYSTER, AND ILEOSTOMY IS LEAKING HPI/ROS: CHIEF COMPLAINT: Skin complaint and irritation HISTORY OF PRESENT ILLNESS: Patient reports several days of irritation and redness surrounding her ileostomy and midline incision. This stems from an June 17, 2016 ileostomy due to a perforated sigmoid diverticulitis. She was doing well with this until recently. Since then she has had difficulty keeping the site from draining the , and thus now has significant irritation surrounded markedly ostomy site and the midline incision. She has no fever. She has no deep abdominal pain. She has been changing the ileostomy bag multiple times per day due to the secretions. Very painful to her. She has minimal improvement when changing the back. She has been holding gauze near it. No changes in the output of her bag. No other associated complaints or modifying factors. REVIEW OF SYSTEMS: Ten systems reviewed and are negative unless otherwise noted in the HPI PAST MEDICAL HISTORY: Ovarian cancer currently on chemotherapy. Perforated sigmoid diverticulitis with ileostomy. PAST SURGICAL HISTORY: Ileostomy, hysterectomy with salpingo-oophorectomy SOCIAL HISTORY: Nonsmoker. Lives here locally. FAMILY HISTORY: Noncontributory EXAMINATION General Appearance: Alert, no distress Head: normocephalic, atraumatic Eyes: Pupils equal and round, no conjunctival pallor or injection ENT, Mouth: Mucous membranes moist Neck: Normal inspection, supple, non-tender Respiratory: Lungs are clear to auscultation Cardiovascular: Regular rate and rhythm. No murmur Gastrointestinal: Abdomen is soft and nondistended. There is a right lower quadrant ileostomy with normal a pain frequent tear on the back. No blood. There is significant skin breakdown and irritation of the skin to the left of the ileostomy and centrally. There is no dehiscence of the previous laparotomy incision. There is no cellulitis or purulence. No induration. Skin: Warm and dry, no rash. Skin changes as noted above Extremities: Nontender, no pedal edema Psychiatric: Mood and affect normal DIFFERENTIAL DIAGNOSES: Including but not limited to skin breakdown, irritation, desquamation, cellulitis MDM: 12:20 p.m. Significant skin breakdown of the lower abdomen surrounding and ileostomy. There is no dehiscence of the incision. There is no signs of cellulitis or infection. No signs of abscess. Abdominal examination is otherwise benign with normal appearing stool in the ileostomy bag. I will contact wound care nurse for them to evaluate the wound. 12:30 p.m. I discussed the case with the on-call wound care nurse, Myesha. She informed that she would be happy come see the patient but that may be a while as she has inpatient duties to attend to first. She also recommends that the patient be seen in the Outpatient Wound Healing Center. 2:50 p.m. Patient has been evaluated by wound care nurse Myesha So. She has recommended that the patient purchase the following product, [place] [id number]. The patient is feeling much better. She will be discharged home stable condition. She is to follow up with the outpatient wound healing center and her surgeon Dr. Allen. She is comfortable this plan and discharged home stable condition. Source: Patient, Family Exam Limitations: No limitations - Personal History Current Tetanus Diphtheria and Acellular Pertussis (TDAP): Yes Tetanus Vaccine Date: < 10 YEARS - Medical/Surgical History Hx Asthma: No Hx Chronic Respiratory Disease: No Hx Diabetes: No Hx Cardiac Disease: No Hx Renal Disease: No Hx Cirrhosis: No Hx Alcoholism: No Hx HIV/AIDS: No Hx Splenectomy or Spleen Trauma: No Other PMH: hysterectomy, hypothyroid, OVARIAN CANCER - Social History Smoking Status: Never smoked Constitutional: Initial Vital Signs Temperature (C) 99.1 F 10/31/16 11:46 Heart Rate 83 10/31/16 11:46 Respiratory Rate 16 10/31/16 11:46 Blood Pressure 153/79 H 10/31/16 11:46 O2 Sat (%) 92 10/31/16 11:46 O2 Delivery Mode Room Air Allergies/Adverse Reactions: No Known Allergies Allergy (Unverified 10/31/16 11:51) Home Medications: Medication Instructions Recorded Levothyroxine [Synthroid 100 mcg 100 mcg PO DAILY06 06/17/16 (*)] Simvastatin 40 mg PO HS 06/17/16 Departure - Departure Disposition: Home, Routine, Self-Care Clinical Impression: Ulcer of abdomen wall, limited to breakdown of skin Condition: Good Instructions: Ileostomy Care (ED), Acute Rash (ED) Additional Instructions: 1. Follow up with general surgeon 2. Follow up in the Wound Healing Center 3. For [facility] product #[id number] per wound care nurse 4. ED precautions as discussed Referrals: Belem Gao MD [Primary Care Provider] - As per Instructions Wound Healing Center,[facility] [Clinic] - As per Instructions
[2016-10-31 15:08] VITALS: BP 144/76; PULSE 76; TEMP 97.9; O2SAT 94
== END 2016-10-31 15:07 | disposition home or self-care (01) ==
DX: L98.491 Non-pressure chronic ulcer of skin of other sites limited to breakdown of skin (principal); Z85.43 Personal history of malignant neoplasm of ovary

== ENCOUNTER 2017-06-16 05:42 | Inpatient (IN) | payer OTHER ==
--- NOTE | 2017-06-14 17:56 | GHP ---
[f rep st] PREOP HISTORY AND PHYSICAL DATE OF ADMISSION: 06/16/2017 PREOPERATIVE DIAGNOSIS: Diverticulitis with ileostomy. HISTORY OF PRESENT ILLNESS: The patient is a 77-year-old woman with ovarian cancer. She developed diverticulitis and was taken to the operating room by Dr. Allen for a sigmoid colectomy with diverting ileostomy. She developed a midline wound infection postoperatively, which healed well with wound VAC therapy. She has completed chemotherapy. She is ready for reversal of her ileostomy. She denies any worsening symptoms, including abdominal pain, fevers , chills, and weakness. PAST MEDICAL HISTORY: Diverticulitis, hyperlipidemia, hypothyroidism, and ovarian cancer. PAST SURGICAL HISTORY: Hysterectomy, BSO, diverting ileostomy, sigmoid colectomy, partial thyroidectomy, and tonsillectomy. ALLERGIES: No known drug allergies. FAMILY HISTORY: Significant for Alzheimer disease, cardiovascular disease in her father and throat cancer and tuberculosis in her mother. SOCIAL HISTORY: She is . She denies tobacco, alcohol, and recreational drug use. REVIEW OF SYSTEMS: 10-point review of systems negative aside from HPI. PHYSICAL EXAMINATION: GENERAL: A pleasant, well-developed, well-nourished woman in no acute distress. HEENT: Normocephalic, atraumatic. No hearing deficits. Pupils equal and round. No scleral icterus. Mucous membranes moist. NECK: Trachea midline. RESPIRATORY: Clear to auscultation bilaterally. No increased work of breathing. CARDIOVASCULAR: Regular rate and rhythm. No peripheral edema. ABDOMEN: Soft, nondistended, and nontender. Ileostomy in place. Previous surgical incision well healed. SKIN: Warm and dry. PSYCH: Mood and affect normal. NEURO: Grossly intact. IMPRESSION AND PLAN: A 77-year-old woman status post chemotherapy for ovarian cancer, who is ready for reversal of her ileostomy. We discussed risks of surgery, including, but not limited to, heart attack, stroke, blood clots or . We discussed risk of infection, bleeding, damage to surrounding structures, or anastomotic leak. She understands the risks and would like to proceed. This will be an inpatient procedure. We also discussed her midline hernia where she had a wound during chemotherapy. We will primarily repair this hernia and may need to do a bowel resection. Risks and benefits discussed. She will receive antibiotics on-call to the operating room. Patient was additionally seen and evaluated by Dr. Myra Allen. /[id number]/MODL MTDD
[2017-06-16] MEDS ORDERED: LIDOCAINE 1% 2 ML INJ ID PRN (06:06)
[2017-06-16] MEDS ORDERED: LR 1,000 ML IV ONE (06:06)
[2017-06-16] MEDS ORDERED: cefTRIAXone 2 GM in STERILE WATER INJ 20 ML IV ONE (07:00)
[2017-06-16] MEDS ORDERED: MIDAZOLAM 2 MG/2 ML VIAL IVP ONE (07:05)
--- NOTE | 2017-06-16 07:08 | PDANEPAE ---
ANE History of Present Illness ostomy take down, ventral hernia repair ANE Past Medical History - Cardiovascular History Hx Hypertension: No Hx Arrhythmias: No Hx Chest Pain: No Hx Coronary Artery / Peripheral Vascular Disease: No Hx CHF / Valvular Disease: No Hx Palpitations: No - Pulmonary History Hx COPD: No Hx Asthma/Reactive Airway Disease: No Hx Recent Upper Respiratory Infection: No Hx Oxygen in Use at Home: No Hx Sleep Apnea: No Sleep Apnea Screening Result - Last Documented: Negative - Neurologic History Hx Cerebrovascular Accident: No Hx Seizures: No Hx Dementia: No Neurologic History Comment: CHILDHOOD SEIZURES - Endocrine History Hx Diabetes: No Hypothyroid: Yes - Renal History Hx Renal Disorders: No - Liver History Hx Hepatic Disorders: No - Neurological & Psychiatric Hx Hx Neurological and Psychiatric Disorders: Yes Neurological / Psychiatric History Comment: neuropathy fingers and toes, mainly toes now - Cancer History Hx Cancer: Yes Cancer History Comment: NEW DX OVARIAN CA - Congenital Disorder History Hx Congenital Disorders: No - GI History Hx Gastrointestinal Disorders: Yes Gastrointestinal History Comment: CHRONIC CONSTIPATION. DIVERTICULOSIS. reflux - Other Health History Other Health History[facility] - Chronic Pain History Chronic Pain: No - Surgical History Prior Surgeries: COLON RESECTION WITH ILEOSTOMY 06/17/2016. HYSTERECTOMY/BSO AT [facility]. LT THYROIDECTOMY ANE Review of Systems Review of Systems: - Exercise capacity METS (RN): 4 METS ANE Patient History - Allergies Allergies/Adverse Reactions: No Known Allergies Allergy (Verified 06/14/17 15:07) - Home Medications Home Medications: Levothyroxine [Synthroid 100 mcg (*)] 100 mcg PO DAILY06 06/17/16 [Last Taken 05:15] Simvastatin 40 mg PO HS 06/17/16 [Last Taken 06/15/17] - NPO status NPO Since - Liquids (Date): 06/15/17 NPO Since - Liquids (Time): 17:00 NPO Since - Solids (Date): 06/15/17 NPO Since - Solids (Time): 17:00 - Anes Hx Anes Hx: no prior problems - Smoking Hx Smoking Status: Never smoked - Family Anes Hx Family Hx Anesthesia Complications: none ANE Labs/Vital Signs - Vital Signs Blood Pressure: 140/75 Heart Rate: 73 Respiratory Rate: 16 O2 Sat (%): 90 Height: 173.99 cm Weight: 63.503 kg ANE Physical Exam - Airway Mallampati Score: Class 2 Mouth exam: normal dental/mouth exam - Pulmonary Pulmonary: no respiratory distress - Cardiovascular Cardiovascular: regular rate and rhythym - ASA Status ASA Status: II ANE Anesthesia Plan Anesthesia Plan: general endotracheal anesthesia
[2017-06-16] MEDS ORDERED: KETOROLAC 30 MG/1 ML SDV ONE (07:11)
[2017-06-16] MEDS ORDERED: ROCURONIUM 100 MG/10 ML VIAL ONE (07:11)
[2017-06-16] MEDS ORDERED: DEXAMETHASONE 4 MG/ML VIAL ONE (07:11)
[2017-06-16] MEDS ORDERED: ONDANSETRON 4 MG/2 ML VIAL ONE (07:11)
[2017-06-16] MEDS ORDERED: LIDOCAINE 2% 5 ML SDV ONE (07:12)
[2017-06-16] MEDS ORDERED: PROPOFOL 200 MG/20 ML VIAL ONE (07:13)
[2017-06-16] MEDS ORDERED: fentaNYL 100 MCG/2 ML INJ ONE (07:13)
[2017-06-16] MEDS ORDERED: epHEDrine SULFATE 10 MG/ML SYR ONE (07:41)
[2017-06-16] MEDS: BUPIVACAINE 0.5% 30 ML SDV ONE ×2 (08:10→10:40)
[2017-06-16] MEDS ORDERED: SUGAMMADEX SODIUM 200 MG/2 ML VIAL IVP ONE (10:23)
[2017-06-16] MEDS ORDERED: ONDANSETRON DISINTEGRATING 4 MG TAB PO PRN (10:42)
[2017-06-16] MEDS ORDERED: fentaNYL 100 MCG/2 ML INJ IVP PRN (10:42)
[2017-06-16] MEDS ORDERED: NALOXONE HCL 0.4 MG/ML INJ IVP PRN ×2 (10:42)
[2017-06-16] MEDS ORDERED: HYDROmorphONE/DILAUDID 6 MG/30 ML PCA IV PRN (10:42)
[2017-06-16] MEDS ORDERED: ALBUTEROL 3 ML DEYVIAL IH PRN (10:42)
[2017-06-16] MEDS ORDERED: ONDANSETRON 4 MG/2 ML VIAL IVP PRN ×2 (10:42)
[2017-06-16] MEDS ORDERED: diphenhydrAMINE 25 MG CAP PO PRN (10:42)
[2017-06-16] MEDS ORDERED: HYDROmorphone HCL/NS 0.5 MG/ML SYR IVP PRN (10:42)
[2017-06-16] MEDS ORDERED: PHENYLEPHRINE HCL 100 MCG/ML SYR IVP PRN (10:42)
[2017-06-16] MEDS ORDERED: LR 500 ML IV PRN (10:42)
[2017-06-16] MEDS ORDERED: HYDROCODONE/APAP 5/325 TAB PO PRN (10:42)
--- NOTE | 2017-06-16 10:48 | POSTOPPROG ---
Post Op Note Date of Operation: 06/16/17 Surgeon: Myra Allen Learning Consultant: iglesia Anesthesiologist: mau Anesthesia: GET(General Endotracheal) Pre-op Diagnosis: perforated diverticulitis with ileostomy Post-op Diagnosis: same Indication: 77yo F with ovarian CA who developed perf divertic and diverting ileostomy Procedure: ex lap, adhesiolysis, tx colectomy, ileostomy takedown, ventral hernia repa Findings: adhesions to midline incision, iatrogenic colotomy, ventral hernia Inf/Abcess present in the surg proc area at time of surgery?: No EBL: 100-500 Specimen(s): ileostomy transverse colon
--- NOTE | 2017-06-16 11:47 | PDMN ---
Medical Necessity Medical necessity: [id number] per surg [place] [facility] [place] 4 days: expl. Lap, adhesiolysis, tx colectomy, ileostomy takedown, ventral hernia repair.
[2017-06-16] MEDS: KETOROLAC 15 MG/1 ML SDV IVP SCH ×3 (11:50→22:49)
[2017-06-16] MEDS: NS 1,000 ML IV SCH ×2 (13:14→22:52)
[2017-06-16] MEDS: ATORVASTATIN CALCIUM 20 MG TAB PO SCH (22:49)
[2017-06-17 05:24] LABS: PLATELET COUNT 131 10^3/uL (150-400)
[2017-06-17] MEDS: KETOROLAC 15 MG/1 ML SDV IVP SCH ×4 (05:44→23:29)
[2017-06-17] MEDS: LEVOTHYROXINE 100 MCG TAB PO SCH (05:45)
[2017-06-17] MEDS: NS 1,000 ML IV SCH ×2 (08:16→17:29)
[2017-06-17] MEDS ORDERED: ENOXAPARIN 40 MG/0.4 ML SYR SC SCH (09:00)
--- NOTE | 2017-06-17 11:58 | SOAPPROG ---
SOAP Progress Note Assessment/Plan: Assessment: 77 y/o female with a hx of ovarian CA and diverticulitis s/p sigmoid colectomy with a diverting ileostomy. Subsequent incisional infection with wound vac Now s/p ileostomy take down POD#1 S: Smiling. Doing very well since surgery. Pain well controlled. Passed some gas last night. O: Alert Afebrile RRR No increased WOB Abdomen: soft, but distended. Dressings cdi. +BS, mildly tender Plan: Seen with Dr. Allen. Clear liquid diet. Although she reports doing well postoperatively, hesitant to advance diet. Continue to watch closely given her previous history of wound infection. 06/17/17 11:59 Objective: Vital Signs Temp Pulse Resp BP Pulse Ox 37.2 C 83 16 139/55 H 98 06/17/17 11:43 06/17/17 11:43 06/17/17 11:43 06/17/17 11:43 06/17/17 11:43 Laboratory Results 06/17/17 05:10 06/17/17 05:10 06/16/17 06/17/17 06/18/17 05:59 05:59 05:59 Intake Total 2680 Output Total 650 Balance 2030 ICD10 Worksheet Patient Problems: Problems Problem Status Onset Bowel perforation Acute Severe sepsis Acute
--- NOTE | 2017-06-17 16:04 | ASMTCMCOM ---
CM Note CM Note Notes: Chart reviewed. Patient is s/p ileostomy reversal. PT and OT have cleared her for discharge to home Independent with family support. No current needs identified. CM available should needs arise. Plan: Home Independent Date Signed: 06/17/2017 04:03 PM Electronically Signed By:Camila Cintron RN
[2017-06-17] MEDS: ATORVASTATIN CALCIUM 20 MG TAB PO SCH (22:03)
[2017-06-18] MEDS: LEVOTHYROXINE 100 MCG TAB PO SCH (06:03)
[2017-06-18] MEDS: KETOROLAC 15 MG/1 ML SDV IVP SCH ×4 (06:04→23:39)
--- NOTE | 2017-06-18 09:10 | SOAPPROG ---
SOAP Progress Note Assessment/Plan: Assessment: 77 y/o female with a hx of ovarian CA and diverticulitis s/p sigmoid colectomy with a diverting ileostomy. Subsequent incisional infection with wound vac Now s/p ileostomy take down POD#1 S: Smiling. Doing very well since surgery. Pain well controlled. Passed some gas last night. O: Alert Afebrile RRR No increased WOB Abdomen: soft, but distended. Dressings cdi. +BS, mildly tender Plan: Seen with Dr. Allen. Clear liquid diet. Although she reports doing well postoperatively, hesitant to advance diet. Continue to watch closely given her previous history of wound infection. 06/17/17 11:59 06/18/17 09:08 Received a call last night that her dressing was saturated. Hct stable. RN changed dressing, this am dressing is cdi. Tolerating clears. +BS. Continuing to pass gas. Pain well controlled. pt will be seen by Dr. Allen this pm, possibly advance diet. Objective: Vital Signs Temp Pulse Resp BP Pulse Ox 37.0 C 79 16 129/62 H 94 06/18/17 07:50 06/18/17 07:50 06/18/17 07:50 06/18/17 07:50 06/18/17 07:50 Laboratory Results 06/17/17 22:30 06/17/17 05:10 06/17/17 06/18/17 06/19/17 05:59 05:59 05:59 Intake Total 4580 2424 Output Total 650 Balance 2029 242 ICD10 Worksheet Patient Problems: Problems Problem Status Onset Bowel perforation Acute Severe sepsis Acute
--- NOTE | 2017-06-18 09:28 | GOP ---
[f rep st] OPERATIVE REPORT DATE OF OPERATION: 06/16/2017 SURGEON: Myra Allen MD BOW REPAIRER CUSTOM: MARIA DE JESUS Malone ANESTHESIA: General. ANESTHESIOLOGIST: Dr. Werner Traylor. PREOPERATIVE DIAGNOSIS: History of ovarian cancer and perforated diverticulitis with ileostomy. . POSTOPERATIVE DIAGNOSIS: History of ovarian cancer and perforated diverticulitis with ileostomy. PROCEDURE PERFORMED: Exploratory laparotomy, extensive adhesiolysis, ileostomy take down, transverse colon resection and primary anastomosis, ventral hernia repair. FINDINGS: Multiple adhesions to the midline incision. Colon densely adhered to the midline incision. Ventral hernia. SPECIMENS: Ileostomy, transverse colon. ESTIMATED BLOOD LOSS: 200 cc. INDICATIONS: The patient is a 77-year-old woman who underwent hysterectomy for ovarian cancer. She was found to have a perforated diverticulum after surgery. I took her to the operating room for washout, colectomy, and loop ileostomy. During her chemotherapy, she did have thinning of her midline incision and we could see bowel peristalsing beneath the midline wound. She presents for ileostomy reversal, ventral hernia repair. DESCRIPTION OF PROCEDURE: Patient was brought into the operating room, placed supine on the table, and general anesthesia was administered. Her abdomen was prepped and draped in the usual sterile fashion. Initially isolated the midline incision from the ileostomy takedown site, and made an ellipse around the ileostomy takedown site, and I carefully dissected around the loops of the bowel and them from the fascia. I then cleared the adhesions intraperitoneal. I could feel that the bowel was adhesed into the midline. Once I had enough space, I placed a stapler in each limb of the ileostomy, making a [id number] functional end-to-end anastomosis, and I then closed the enterotomy with a GERHARD 75 stapler, and returned the bowel to the abdominal cavity. Next, I excised the scar in her midline. I dissected down through the subcutaneous space. There were numerous adhesions and I spent quite a bit of time performing adhesiolysis, approximately 1 hour, which is 25% more than I would consider in a similar case. At 1 area on her midline, the transverse colon was adhered to the subcutaneous tissues, and enterotomies were made in this area. I was fully able to dissect free all the bowel from the pericolic gutter. I examined her intestines and the only area where an enterotomy occurred was in the transverse colon. I performed a segmental resection of the transverse colon. I then aligned the colon on the antimesenteric borders. I created an enterotomy in each limb and passed a GERHARD 75. I closed the enterotomy with a TA 60. I closed the mesentery with 3-0 Vicryl. Hemostasis was achieved. Irrigation was performed. Clean closure was performed. I closed the midline skin with jim. Sterile dressings were applied. I closed the fascia in the midline and ileostomy takedown site with #1 PDS. I closed the fascia at the ileostomy site with #1 PDS. I performed a purstring suture with ) Vicryl at the ileostomy takedown site. Sujata, Hydrofera Blue Ready was placed at the ileostomy takedown site. She was awakened in the operating room, extubated, transferred to PACU in stable condition. /[id number]/MODL MTDD
[2017-06-18] MEDS: ENOXAPARIN 40 MG/0.4 ML SYR SC SCH (11:46)
[2017-06-18] MEDS: NS 1,000 ML IV SCH (13:03)
[2017-06-18] MEDS ORDERED: MAGNESIUM HYDROXIDE 30 ML UDCUP PO PRN (13:14)
[2017-06-18] MEDS ORDERED: LACTULOSE 20 GM/30 ML UDCUP PO PRN (13:14)
[2017-06-18] MEDS ORDERED: POLYETHYLENE GLYCOL 3350 17 GM PKT PO PRN (13:14)
[2017-06-18] MEDS ORDERED: BISACODYL 10 MG SUPP PR PRN (13:14)
--- NOTE | 2017-06-18 19:26 | SOAPPROG ---
CRIST[facility] Progress Note Assessment/Plan: Assessment: S/P ileostomy takedown, transverse colon segmentectomy, ventral hernia repair LUIS Passing flatus Pain controlled Advance diet Changed leonard and HFB. Midline incision with small amount of serosanguinous drainage. Some bruising Plan: 06/18/17 19:25 Objective: Vital Signs Temp Pulse Resp BP Pulse Ox 36.7 C 82 14 138/62 H 93 06/18/17 17:56 06/18/17 17:56 06/18/17 17:56 06/18/17 17:56 06/18/17 17:56 Laboratory Results 06/17/17 22:30 06/17/17 05:10 06/17/17 06/18/17 06/19/17 05:59 05:59 05:59 Intake Total 2680 2424 1114 Output Total 650 Balance 2029 2424 1114 ICD10 Worksheet Patient Problems: Problems Problem Status Onset Bowel perforation Acute Severe sepsis Acute
[2017-06-18] MEDS: HYDROCODONE/APAP 5/325 TAB PO PRN (21:42)
[2017-06-18] MEDS: SENNOSIDES/DOCUSATE SODIUM TAB PO SCH (21:43)
[2017-06-18] MEDS: ATORVASTATIN CALCIUM 20 MG TAB PO SCH (21:43)
[2017-06-19] MEDS: LEVOTHYROXINE 100 MCG TAB PO SCH (05:05)
[2017-06-19] MEDS: KETOROLAC 15 MG/1 ML SDV IVP SCH ×4 (05:05→23:29)
[2017-06-19] MEDS: SENNOSIDES/DOCUSATE SODIUM TAB PO SCH ×2 (08:17→21:45)
[2017-06-19] MEDS: HYDROCODONE/APAP 5/325 TAB PO PRN ×2 (08:18→15:20)
[2017-06-19] MEDS: ENOXAPARIN 40 MG/0.4 ML SYR SC SCH (08:20)
--- NOTE | 2017-06-19 16:38 | SOAPPROG ---
SOAP Progress Note Assessment/Plan: Assessment/Plan: 77yo F with ovarian ca POD #3 s/p ileostomy takedown, transverse colon segmentectomy, ventral hernia repair and LUIS Pain controlled Tolerating regular diet Passing flatus. No BM Ambulating Dispo: likely home tomorrow if continues to tolerate diet. S: feeling well. passing gas. tolerated egg and toast for breakfast this am - first food. O: sitting upright in chair, comfortable, NAD, Ed at bedside No increased WOB +BS. Abd distended but soft. Dressings saturated with serosanguinous fluid. I removed outer bandages. Midline incision CDI, jim intact, some surrounding ecchymosis, no erythema. Ileostomy takedown site without erythema, HFB packing in place. Outer dressings applied Objective: Vital Signs Temp Pulse Resp BP Pulse Ox 36.7 C 84 16 134/77 H 90 L 06/19/17 16:00 06/19/17 16:00 06/19/17 16:00 06/19/17 16:00 06/19/17 16:00 Laboratory Results 06/17/17 22:30 06/17/17 05:10 06/18/17 06/19/17 06/20/17 05:59 05:59 05:59 Intake Total 2424 1594 350 Balance 2424 1594 350 ICD10 Worksheet Patient Problems: Problems Problem Status Onset Bowel perforation Acute Severe sepsis Acute
[2017-06-19] MEDS: ATORVASTATIN CALCIUM 20 MG TAB PO SCH (21:45)
[2017-06-20] MEDS: LEVOTHYROXINE 100 MCG TAB PO SCH (05:31)
[2017-06-20] MEDS: KETOROLAC 15 MG/1 ML SDV IVP SCH ×4 (05:31→23:02)
[2017-06-20] MEDS: ACETAMINOPHEN 325 MG TAB PO PRN (08:50)
[2017-06-20] MEDS: SENNOSIDES/DOCUSATE SODIUM TAB PO SCH ×2 (08:53→21:07)
--- NOTE | 2017-06-20 09:23 | SOAPPROG ---
SOAP Progress Note Assessment/Plan: Assessment/Plan: 77yo F with ovarian ca POD #4 s/p ileostomy takedown, transverse colon segmentectomy, ventral hernia repair and LUIS Pain controlled Tolerating regular diet Passing flatus. Small amt BM Ambulating Dispo: likely home later today if pain controlled S: having increased pain this am. passing gas. small amount of stool. O: laying in bed, comfortable, NAD, Ed at bedside No increased WOB +BS. Abd softly distended. Dressings intact. Nontender Objective: Vital Signs Temp Pulse Resp BP Pulse Ox 36.9 C 77 16 131/66 H 94 06/20/17 08:00 06/20/17 08:00 06/20/17 08:00 06/20/17 08:00 06/20/17 08:00 Laboratory Results 06/17/17 22:30 06/17/17 05:10 06/19/17 06/20/17 06/21/17 05:59 05:59 05:59 Intake Total 1594 900 Balance 1594 900 ICD10 Worksheet Patient Problems: Problems Problem Status Onset Bowel perforation Acute Severe sepsis Acute
--- NOTE | 2017-06-20 11:38 | ASMTCMCOM ---
CM Note CM Note Notes: CM spoke w/ YASMIN Andrews regarding d/c POC. CM met w/ pt for dispo planning. PT is recommending home vs home w/ HC. Pt is not interested in HC at this time. No other needs identified at this time. CM available for changes. Plan: Independent Plan: Independent Date Signed: 06/20/2017 11:38 AM Electronically Signed By:OPAL Lyn
[2017-06-20] MEDS: ENOXAPARIN 40 MG/0.4 ML SYR SC SCH ×2 (13:29→16:01)
[2017-06-20] MEDS: ATORVASTATIN CALCIUM 20 MG TAB PO SCH (21:07)
[2017-06-21] MEDS: KETOROLAC 15 MG/1 ML SDV IVP SCH (06:04)
[2017-06-21] MEDS: LEVOTHYROXINE 100 MCG TAB PO SCH (06:04)
[2017-06-21 07:32] VITALS: BP 126/66
[2017-06-21] MEDS: ACETAMINOPHEN 325 MG TAB PO PRN (09:35)
[2017-06-21] MEDS: SENNOSIDES/DOCUSATE SODIUM TAB PO SCH (09:35)
[2017-06-21] MEDS: ENOXAPARIN 40 MG/0.4 ML SYR SC SCH (09:36)
--- NOTE | 2017-06-21 09:50 | SOAPPROG ---
SOCARMELINA Progress Note Assessment/Plan: Assessment: S/P ileostomy takedown, transverse colon segmentectomy, ventral hernia repair LUIS had bm Pain controlled regular diet RTC on Monday Changed leonard and HFB. Midlinedressing dry CTAB RRR Appears well Plan: 06/18/17 19:25 06/21/17 09:49 Objective: Vital Signs Temp Pulse Resp BP Pulse Ox 36.8 C 80 16 126/66 H 92 06/21/17 07:29 06/21/17 07:29 06/21/17 07:29 06/21/17 07:29 06/21/17 07:29 Laboratory Results 06/17/17 22:30 06/17/17 05:10 06/20/17 06/21/17 06/22/17 05:59 05:59 05:59 Intake Total 900 Balance 900 ICD10 Worksheet Patient Problems: Problems Problem Status Onset Bowel perforation Acute Severe sepsis Acute
--- NOTE | 2017-06-26 10:33 | PQFORM ---
PHYSICIAN QUERY FORM Needs Your Response This query form is being sent to you to assure this patient record is coded properly. 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 Allen, Would this patient's enterotomy and subsequent transverse colon segmentectomy be considered a surgical complication? Yes No Other _There was not an enterotomy before surgery so yes. However, She had a ventral hernia and her bowel was densely adhesed to the skin and this was unavoidable in order to repair the hernia Thank you for clarifying, BRIDGETT Beltrán HIM Coding INSTRUCTIONS FOR RESPONSE: Answer question by clicking on the "Edit Document" button. Move cursor to area below the stars. When complete, hit "Save." Click on the "Sign" button, then click "Sign" again. Type in your PIN and hit "Enter." MTDD
== END 2017-06-21 10:48 | disposition home or self-care (01) | DRG 331 ==
LOC: F3E 05:42
PROVIDERS: ADMIT Surgery; ATTEND Surgery
PROC: 0DNL0ZZ Release Transverse Colon, Open Approach (ICD-10-PCS; principal; 2017-06-16 07:15)
PROC: 0WQF0ZZ Repair Abdominal Wall, Open Approach (ICD-10-PCS; principal; 2017-06-16 07:15)
PROC: 0DSB0ZZ Reposition Ileum, Open Approach (ICD-10-PCS; principal; 2017-06-16 07:15)
PROC: 0DBL0ZZ Excision of Transverse Colon, Open Approach (ICD-10-PCS; principal; 2017-06-16 07:15)
DX: Z43.2 Encounter for attention to ileostomy (principal); K43.2 Incisional hernia without obstruction or gangrene; K66.0 Peritoneal adhesions (postprocedural) (postinfection); K57.30 Diverticulosis of large intestine without perforation or abscess without bleeding; K21.9 Gastro-esophageal reflux disease without esophagitis; E78.5 Hyperlipidemia, unspecified; E89.0 Postprocedural hypothyroidism; Z90.49 Acquired absence of other specified parts of digestive tract; Z85.43 Personal history of malignant neoplasm of ovary
CPT/HCPCS: 97110-GP; 97116-GP; 97162-GP; 97165-GO; 97535-GO; G8978-GP-CJ; G8979-GP-CI; G8987-GO-CJ; G8988-GO-CI; G8989-GO-CI; J0696; J1100; J1170; J1650; J1885; J2250; J2370; J2405; J2704; J3010

== ENCOUNTER 2017-06-30 15:44 | Inpatient (IN) | payer OTHER ==
[2017-06-30 17:21] LABS: PLATELET COUNT 473 10^3/uL (150-400)
[2017-06-30] MEDS ORDERED: ACETAMINOPHEN 325 MG TAB PO PRN (17:57)
--- NOTE | 2017-06-30 18:31 | GHP ---
[f rep st] PREOP HISTORY AND PHYSICAL DATE OF ADMISSION: 06/30/2017 ADMITTING DIAGNOSIS: Recent ileostomy takedown. Wound infection. HISTORY OF PRESENT ILLNESS: The patient is a very pleasant 77-year-old woman who has a history of ov enrique cancer. She developed diverticulitis and was taken to the operating room by Dr. Allen for sigm oid colectomy with diverting ileostomy. She developed a midline wound dehiscence postoperatively, wh ich healed with wound VAC therapy. She completed chemotherapy for the ovarian cancer. She then unde rwent takedown of the ileostomy on 06/16/2017. Her postop course was unremarkable. She was discharg ed home on 06/21/2017 and has been following up regularly at our outpatient clinic. She presented to the clinic today complaining of increased drainage from her midline incision. She first noticed red ness at the superior aspect of her midline incision last night. She had no drainage at that time, th e redness increased and the wound broke open. She reported brown feculent drainage from the wound. She denies any fevers or chills. She denies any abdominal pain in the area. She is still having bow el movements and passing gas. She is not currently on any antibiotics. PAST MEDICAL HISTORY: Diverticulitis, hyperlipidemia, hypothyroidism, ovarian cancer. PAST SURGICAL HISTORY: Most recently, exploratory laparotomy with lysis of adhesions, transverse col ectomy, ileostomy takedown, ventral hernia repair. Other surgeries include hysterectomy, BSO, divert ing ileostomy, sigmoid colectomy, partial thyroidectomy, and tonsillectomy. ALLERGIES: No known drug allergies. FAMILY HISTORY: Significant for Alzheimer disease, cardiovascular disease in her father, and throat cancer and tuberculosis in her mother. SOCIAL HISTORY: She is to her . She denies tobacco, alcohol or recreational drug use . REVIEW OF SYSTEMS: A 10-point review of systems is negative aside from HPI. PHYSICAL EXAMINATION: GENERAL: A pleasant, well-developed, well-nourished woman in no acute distres s, nontoxic, accompanied by . HEENT: Normocephalic, atraumatic. No hearing deficits. Pupil s are equal and round. No scleral icterus. Mucous membranes are moist. NECK: Trachea midline. RE SPIRATORY: No increased work of breathing. CARDIOVASCULAR: No peripheral edema. ABDOMEN: Soft, no ndistended, nontender. No rebound or guarding. Ileostomy takedown dressing in place. She has a 2 c m opening at the superior aspect of her surgical incision. There is there is feculent drainage comin g from the wound. I irrigated with normal saline. The fluid continues to reaccumulate. She has daly rounding erythema around the opening which was marked with a pen. The wound was cleansed with normal saline, packed with plain gauze packing, and an outer bandage applied. SKIN: Otherwise warm and dr bety. PSYCHIATRIC: Mood and affect normal. NEUROLOGIC: Grossly intact. IMPRESSION AND PLAN: A 77-year-old woman, status post transverse colectomy, ileostomy takedown, and ventral hernia repair on 06/16/2017, now presenting with feculent drainage from her midline incision. 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 She does not appear to have peritoneal signs at this time. She will be admitted for further imaging, antibiotics if indicated, surgical intervention if indicated, and observation. I have ordered a stat CT with oral contrast. We will await the results of this and developed a further plan from there. Case was discussed with Dr. Myra Allen. /[id number]/MODL
[2017-06-30] MEDS ORDERED: IOPAMIDOL (ISOVUE-300) 100 ML BTL ONE (18:44)
[2017-06-30] MEDS: ATORVASTATIN CALCIUM 20 MG TAB PO SCH (20:31)
--- NOTE | 2017-06-30 20:57 | SOAPPROG ---
SOAP Progress Note Assessment/Plan: Assessment: called Eli, looks like contained colocutaneous fistula will need to determine high vs low output NPO ABX for now Ostomy bag Plan: 06/30/17 20:56 Objective: Vital Signs Temp Pulse Resp BP Pulse Ox 37.0 C 74 16 133/71 H 95 06/30/17 18:52 06/30/17 18:52 06/30/17 18:52 06/30/17 18:52 06/30/17 18:52 Laboratory Results 06/30/17 16:56 06/30/17 16:56 06/29/17 06/30/17 07/01/17 05:59 05:59 05:59 Intake Total 0 Output Total 200 Balance -200 ICD10 Worksheet Patient Problems: Problems Problem Status Onset Bowel perforation Acute Severe sepsis Acute
[2017-06-30] MEDS ORDERED: NON-FORMULARY NEW DRUG (Simvastatin [Simvastatin] 40 MG) PO SCH (21:00)
[2017-07-01] MEDS: LEVOTHYROXINE 100 MCG TAB PO SCH (05:26)
[2017-07-01] MEDS: NS 1,000 ML IV SCH ×2 (10:06→21:07)
--- NOTE | 2017-07-01 11:00 | ASMTCMCOM ---
CM Note CM Note Notes: Pt admitted with colocutaneous fistula. Pt here recently for ileostomy takedown & returned home with the support of her , Ed ([phone]). Pt has been to [facility] in the past. No PT/OT currently ordered. Surgery is following. Pt receiving IV abx & has an ostomy in place. CM will continue to follow. Dc plan-TBD Date Signed: 07/01/2017 10:59 AM Electronically Signed By:Mariana Holman RN
--- NOTE | 2017-07-01 13:13 | SOAPPROG ---
SOAP Progress Note Assessment/Plan: Assessment/Plan: - 77yo female s/p transverse colectomy now c colocutaneous fistula - VSS, HDS - abdomen soft, appliance covering fistula with stool in bag - CT reviewed, no large undrained collection, some fluid in pelvis but looks simple at this time - NPO, IV abx - will monitor over next few days. Decent chance of closing. May need PICC, TPN. 07/01/17 13:11 Subjective: feels great Objective: Vital Signs Temp Pulse Resp BP Pulse Ox 37.2 C 84 18 128/73 H 93 07/01/17 11:37 07/01/17 11:37 07/01/17 11:37 07/01/17 11:37 07/01/17 11:37 Laboratory Results 06/30/17 16:56 06/30/17 16:56 06/30/17 07/01/17 07/02/17 05:59 05:59 05:59 Intake Total 840 Output Total 200 Balance 640 ICD10 Worksheet Patient Problems: Problems Problem Status Onset Bowel perforation Acute Severe sepsis Acute
--- NOTE | 2017-07-01 13:50 | PDMN ---
Medical Necessity Medical necessity: C/M review: Patient meets INPT criteria under [facility] [place] [place] (Fistula of intestine): Acute and persistent colocutaneous fistula identified between the mid transverse colon and open would in the anterior abdomen with contrast extending through the fistula - no large undrained collection, some fluid in pelvis bit it looks simple at this time on CT, ostomy appliance covering fistula with stool in bag, requiring ongoing NPO, IV Ceftriaxone QD, IV Flagyl Q 8 hrs., IV NS 100 ml/hr. infusion, IV Morphine as needed, comorbid S/P transverse colectomy done 06/16/2017. anticipates > 2 MN LOS for ongoing med nec for eval and TX of above. Patient is Medicare Advantage which follows guidelines CMS puts forth.
[2017-07-01] MEDS: ATORVASTATIN CALCIUM 20 MG TAB PO SCH (20:10)
[2017-07-02] MEDS: LEVOTHYROXINE 100 MCG TAB PO SCH (05:02)
[2017-07-02] MEDS: ONDANSETRON 4 MG/2 ML VIAL IVP PRN ×3 (08:53→21:17)
[2017-07-02] MEDS: NS 1,000 ML IV SCH ×2 (09:00→21:17)
--- NOTE | 2017-07-02 09:58 | SOAPPROG ---
SOAP Progress Note Assessment/Plan: Assessment/Plan: - 77yo female s/p transverse colectomy now c colocutaneous fistula - VSS, HDS - abdomen remains soft, passing flatus. Appliance with less stool in it than yesterday which is reassuring that the CC fistula is responding - cont abx at least through today, although clinically doing well - will make plan early this week regarding treatment (PICC, TPN, surgery) 07/01/17 13:11 07/02/17 09:56 Subjective: continues to feel well, minimal abd pain. Objective: Vital Signs Temp Pulse Resp BP Pulse Ox 37.1 C 74 16 122/60 H 96 07/02/17 07:22 07/02/17 07:22 07/02/17 07:22 07/02/17 07:22 07/02/17 07:22 Laboratory Results 06/30/17 16:56 06/30/17 16:56 07/01/17 07/02/17 07/03/17 05:59 05:59 05:59 Intake Total 840 997 Output Total 200 200 Balance 640 797 ICD10 Worksheet Patient Problems: Problems Problem Status Onset Bowel perforation Acute Severe sepsis Acute
[2017-07-02] MEDS: ATORVASTATIN CALCIUM 20 MG TAB PO SCH (21:17)
[2017-07-03] MEDS: ONDANSETRON 4 MG/2 ML VIAL IVP PRN ×4 (05:32→20:43)
[2017-07-03] MEDS: LEVOTHYROXINE 100 MCG TAB PO SCH (05:32)
[2017-07-03] MEDS: NS 1,000 ML IV SCH (10:24)
--- NOTE | 2017-07-03 10:52 | SOAPPROG ---
SOAP Progress Note Assessment/Plan: Assessment/Plan: 77yo F s/p ex lap, transverse colectomy and ileostomy takedown. Admitted with colocutaneous fistula. No intra-abdominal leak. No pain Passing flatus and BM per rectum (last charted 07/01) Decreasing fistula output with bowel rest Ostomy appliance in place - thin brown stool PICC placement today and TPN. Allow fistula to heal. IV antibiotics. Ileostomy takedown site - hydrofera blue ready and allevyn. change once weekly and outer PRN. Dispo: continue inpatient management for IVF, bowel rest and wound care S: feels well. No abdominal pain. No fevers or chills. in very good spirits. O: laying in bed, comfortable, NAD No increased WOB +BS, abd soft, nt, nd. Ostomy appliance in place at superior aspect of midline incision with thin brown stool in bag. Surrounding erythema resolved. RLQ ileostomy takedown site outer dressing CDI 07/03/17 11:05 Objective: Vital Signs Temp Pulse Resp BP Pulse Ox 37.0 C 68 16 111/59 L 90 L 07/03/17 07:49 07/03/17 07:49 07/03/17 07:49 07/03/17 07:49 07/03/17 07:49 Laboratory Results 06/30/17 16:56 06/30/17 16:56 07/02/17 07/03/17 07/04/17 05:59 05:59 05:59 Intake Total 997 1064 Output Total 200 50 Balance 797 1014 ICD10 Worksheet Patient Problems: Problems Problem Status Onset Bowel perforation Acute Severe sepsis Acute
[2017-07-03] MEDS ORDERED: D10W 1,000 ML IV PRN (11:06)
[2017-07-03] MEDS ORDERED: LIDOCAINE 1% 300 MG/30 ML SDV ONE (11:36)
[2017-07-03 13:24] LABS: PLATELET COUNT 402 10^3/uL (150-400)
--- NOTE | 2017-07-03 13:24 | PDRADPN ---
Radiology Procedure Note Date of Procedure: 07/03/17 Radiologist: Alexandro Andujar Anesthesia: Local (Specify) Pre-op Diagnosis: venous access Post-op Diagnosis: same Indication: medication Procedure: DL RUE PICC Finding(s): ok to use. At cavoatrial junction. 41cm Inf/Abcess present in the surg proc area at time of surgery?: No EBL: Minimal
[2017-07-03 13:28] LABS: INR 1.15 (0.83-1.16); PROTIME(PATIENT) 14.9 SEC (12.0-15.0)
--- NOTE | 2017-07-03 14:37 | ASMTCMCOM ---
CM Note CM Note Notes: Pt had picc placed today and TPN, referral sent to [facility] today as pt may need to d/c on TPN. CM to follow. Date Signed: 07/03/2017 02:36 PM Electronically Signed By:KEELY Fan
[2017-07-03] MEDS: ATORVASTATIN CALCIUM 20 MG TAB PO SCH (20:42)
[2017-07-03] MEDS: TPN W/ FAMOTIDINE 1 EA BAG IV SCH (20:45)
[2017-07-04] MEDS: LEVOTHYROXINE 100 MCG TAB PO SCH (05:05)
[2017-07-04] MEDS ORDERED: ALTEPLASE 2 MG VIAL IVP PRN (05:23)
[2017-07-04 05:24] LABS: PLATELET COUNT 363 10^3/uL (150-400)
[2017-07-04 05:46] LABS: INR 1.16 (0.83-1.16)
[2017-07-04] MEDS: NS 1,000 ML IV SCH (09:53)
--- NOTE | 2017-07-04 10:32 | SOAPPROG ---
SOAP Progress Note Assessment/Plan: Assessment/Plan: 77yo F s/p ex lap, transverse colectomy and ileostomy takedown. Admitted with colocutaneous fistula. No intra-abdominal leak. No pain Passing flatus and BM per rectum (last charted 07/01) Decreasing fistula output with bowel rest Ostomy appliance in place - thin brown stool NPO and TPN. Allow fistula to heal - this may take several months. Cycle TPN IV antibiotics. Ileostomy takedown site - leonard, hydrofera blue ready and allevyn. change once weekly (changed today) Dispo: continue inpatient management for IVF, bowel rest and wound care. Likely home later this week with cycled TPN. Will discuss c CM S: feels well. No abdominal pain. No fevers or chills. in very good spirits. O: laying in bed, comfortable, NAD No increased WOB +BS, abd soft, nt, nd. Ostomy appliance in place at superior aspect of midline incision. Surrounding erythema resolved. RLQ ileostomy takedown site CDI, packing and dressing changed Objective: Vital Signs Temp Pulse Resp BP Pulse Ox 36.7 C 68 16 134/74 H 96 07/04/17 07:20 07/04/17 07:20 07/04/17 07:20 07/04/17 07:20 07/04/17 07:20 Laboratory Results 07/04/17 05:00 07/04/17 05:00 07/03/17 07/04/17 07/05/17 05:59 05:59 05:59 Intake Total 1064 Output Total 50 Balance 1014 PT 15.0 SEC (12.0-15.0) 07/04/17 05:00 INR 1.16 (0.83-1.16) 07/04/17 05:00 ICD10 Worksheet Patient Problems: Problems Problem Status Onset Bowel perforation Acute Severe sepsis Acute
--- NOTE | 2017-07-04 16:42 | ASMTCMCOM ---
CM Note CM Note Notes: CM spoke w/ Michelle, YASMIN regarding d/c POC. Pt is going to require TPN for greater than 6 months. Karen from [facility] stopped by and met w/ pt. Either Dr. Allen or Dr Mijares PA will need to write that pt will need TPN for greater than 3 months for Medicare to pay for it at 100%. Pt is agreeable to having [facility] for an RN. CM to follow. Plan: Greg, RN Date Signed: 07/04/2017 04:41 PM Electronically Signed By:OPAL Lyn
[2017-07-04] MEDS: TPN W/ FAMOTIDINE 1 EA BAG IV SCH (22:07)
[2017-07-04] MEDS: ATORVASTATIN CALCIUM 20 MG TAB PO SCH (22:09)
[2017-07-05] MEDS: LEVOTHYROXINE 100 MCG TAB PO SCH (05:03)
[2017-07-05 05:30] LABS: PLATELET COUNT 352 10^3/uL (150-400)
[2017-07-05 05:35] LABS: INR 1.1 (0.83-1.16); PROTIME(PATIENT) 14.4 SEC (12.0-15.0)
[2017-07-05] MEDS ORDERED: PROTOCOL POTASSIUM 1 DOSE MISC PRN ×2 (10:18→10:20)
[2017-07-05] MEDS ORDERED: PROTOCOL K PHOSPHATE 1 DOSE IV PRN (10:20)
--- NOTE | 2017-07-05 10:24 | SOAPPROG ---
SOAP Progress Note Assessment/Plan: Assessment/Plan: 77yo F s/p ex lap, transverse colectomy and ileostomy takedown. Admitted with colocutaneous fistula. No intra-abdominal leak. No pain Passing flatus Decreasing fistula output with bowel rest Ostomy appliance in place - pt has leftover supplies at home from her ileostomy NPO and TPN. Allow fistula to heal - she will likely require TPN for >3 months. Cycle TPN DC IV antibiotics Ileostomy takedown site - leonard, hydrofera blue ready and allevyn. change once weekly (changed yesterday) Dispo: continue inpatient management for TPN, bowel rest and wound care. Likely home later this week with cycled TPN. Discussed c CM and pharmacy S: feels well. No abdominal pain. No fevers or chills. in very good spirits. no changes today O: laying in bed, comfortable, NAD No increased WOB +BS, abd soft, nt, nd. Ostomy appliance in place at superior aspect of midline incision. No fluid/drainage/stool in bag. RLQ ileostomy takedown site dressing in place 07/05/17 10:35 Objective: Vital Signs Temp Pulse Resp BP Pulse Ox 36.9 C 70 16 130/71 H 90 L 07/05/17 07:12 07/05/17 07:12 07/05/17 07:12 07/05/17 07:12 07/05/17 07:12 Laboratory Results 07/05/17 05:00 07/05/17 05:00 07/04/17 07/05/17 07/06/17 05:59 05:59 05:59 Intake Total 3822 Output Total 1550 Balance 2272 PT 14.4 SEC (12.0-15.0) 07/05/17 05:00 INR 1.10 (0.83-1.16) 07/05/17 05:00 ICD10 Worksheet Patient Problems: Problems Problem Status Onset Bowel perforation Acute Severe sepsis Acute
[2017-07-05] MEDS ORDERED: D50W 25 GM/50 ML SYR IVP PRN (12:20)
[2017-07-05] MEDS: INSULIN REGULAR, HUMAN 100 UNIT/1 ML VIAL STANDARD SC SCH ×2 (13:53→18:18)
[2017-07-05] MEDS: NS 1,000 ML IV SCH (13:58)
--- NOTE | 2017-07-05 17:12 | ASMTCMCOM ---
CM Note CM Note Notes: Spoke w/Karen from [facility] regarding TPN, updated note faxed. DC Plan: [facility]/ TPN + [facility]/RN Date Signed: 07/05/2017 05:11 PM Electronically Signed By:Susana Washington RN
[2017-07-05] MEDS: ATORVASTATIN CALCIUM 20 MG TAB PO SCH (21:18)
[2017-07-05] MEDS: TPN W/ FAMOTIDINE 1 EA BAG IV SCH (21:19)
[2017-07-06] MEDS: INSULIN REGULAR, HUMAN 100 UNIT/1 ML VIAL STANDARD SC SCH ×3 (00:11→06:02)
[2017-07-06] MEDS: LEVOTHYROXINE 100 MCG TAB PO SCH (05:13)
[2017-07-06 05:15] LABS: PLATELET COUNT 326 10^3/uL (150-400)
[2017-07-06 05:24] LABS: INR 1.16 (0.83-1.16)
[2017-07-06 11:27] VITALS: BP 105/60
--- NOTE | 2017-07-06 13:07 | PDIAF ---
- Diagnosis Diagnosis: colocutaneous fistula Code Status: Full Code - Medication Management Discharge Medications: Medications to Continue on Transfer Levothyroxine [Synthroid 100 mcg (*)] 100 mcg PO DAILY06 06/17/16 [Last Taken ] Simvastatin 40 mg PO HS 06/17/16 [Last Taken 06/29/17] Acetaminophen [Tylenol 325mg (*)] 650 mg PO Q6 PRN tab 06/20/17 [Last Taken Unknown] Pharmacy To DoseTPN 1 ea MISC AD bag 07/06/17 [Last Taken Unknown] TPN W/ Famotidine [Hyperalimentation] 1 ea IV DAILY21 bag 07/06/17 [Last Taken Unknown] Additional Medication Instructions: cycle tpn Discharge Medications: Refer to the Discharge Home Medication list for PRN reason. - Orders Services needed: Home Care, Registered Nurse Home Care Face to Face: I certify that this patient was under my care and that I had the required [id number] encounter meeting the encounter requirements on the discharge day. My findings support the fact that the patient is homebound as defined in Home Care Face to Face Continued: CMS Chapter 7 Medicare Benefits Manual 30.1.1 , The condition of the patient is such that there exists a normal inability to leave home and consequently, leaving home would require a considerable and taxing effort. Diet Recommendation: other (NPO except ice chips for comfort) Wound Care Instructions: no heavy lifting pushing or pulling greater than 15 lbs for 3 weeks. Change leonard and hydrofera blue 2x per week RLQ ostomy take down site. 1st change Monday07/07/2017. May shower without dressings. Has colocutneous fistula. Using ostomy appliance midline. PICC cares Additional Instructions: no heavy lifting pushing or pulling greater than 15 lbs for 3 weeks Change leonard and hydrofera blue 2x per week RLQ ostomy take down site. 1st change Monday07/07/2017 May shower without dressings Has colocutneous fistula. Using ostomy appliance midline PICC cares - Labs/Radiology Other Lab Name, Date and Time: PER TPN protocol - Follow Up Care Current Providers and Referrals: Belem Gao MD [Primary Care Provider] - Myra Allen MD [Medical Doctor] - follow up in 1 week
--- NOTE | 2017-07-06 14:31 | ASMTLACE ---
LACE Length of stay for Answers: 4-6 days current admission Acuity / Level of Answers: Yes Care: Did the patient have an inpatient admission? Comorbidities - select Answers: Other Notes: Ovarian all that apply ca, Hypothyroid, Hyperl ipi demia # of Emergency department Answers: 0 visits in the last 6 months Score: 8 Date Signed: 07/06/2017 02:30 PM Electronically Signed By:Susana Washington RN
--- NOTE | 2017-07-06 17:40 | ASDISCHSUM ---
Discharge Information Plan Status:Home with Home Health Medically Cleared to Leave: Discharge Date:07/06/2017 02:15 PM CM D/C Disposition:Home Health Service ADT D/C Disposition:Home Health Service Projected Discharge Date:07/04/2017 11:00 AM Transportation at D/C:Family Discharge Delay Reason: Follow-Up Date:07/04/2017 11:00 AM Discharge Slot: Final Diagnosis: Placement Information Referral Type:Home Infusion Referral ID:[id number] Provider Name:[facility] [place] ([facility]) Address 1:[address] Address 2: City:[place] Selection Factors: State:[place] Patient Contact Information Contact Name:MAY Relationship: Address:[address] City:[place] Alternate Phone: State/Zip Code:[place] [address] Email: Financial Information Financial Class:Medicare Advantage Plans Primary Plan Desc:[facility] Primary Plan Number:[id number] Secondary Plan Desc: Secondary Plan Number: Assessment Information [facility] CM Progress Note CM Note CM Note Notes: Pt admitted with colocutaneous fistula. Pt here recently for ileostomy takedown & returned home with the support of her , Ed ([phone]). Pt has been to [facility] in the past. No PT/OT currently ordered. Surgery is following. Pt receiving IV abx & has an ostomy in place. CM will continue to follow. Dc plan-TBD Date Signed: 07/01/2017 10:59 AM Electronically Signed By:Mariana Holman RN LACE LACE Length of stay for Answers: 4-6 days current admission Acuity / Level of Answers: Yes Care: Did the patient have an inpatient admission? 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 CM to follow. Date Signed: 07/03/2017 02:36 PM Electronically Signed By:KEELY Fan SHAYE NISHANT Progress Note CM Note CM Note Notes: NISHANT spoke w/ YASMIN Martinez regarding d/c POC. Pt is going to require TPN for greater than 6 months. Karen from [facility] stopped by and met w/ pt. Either Dr. Allen or Dr Mijares PA will need to write that pt will need TPN for greater than 3 months for Medicare to pay for it at 100%. Pt is agreeable to having [facility] for an RN. CM to follow. Plan: Greg RN Date Signed: 07/04/2017 04:41 PM Electronically Signed By:OPAL Lyn [facility] NISHANT Progress Note CM Note CM Note Notes: Spoke w/Karen from [facility] regarding TPN, updated note faxed. DC Plan: [employer]/ TPN + BCELI/RN Date Signed: 07/05/2017 05:11 PM Electronically Signed By:Susana Washington RN Case Management Discharge Plan Note Case Management Discharge Discharge Order Complete? Answers: Yes Patient to Obtain Answers: Other Notes: [facility] Medications Transportation Arranged Answers: Family/Friends Faxed Final Orders Answers: Yes Discharge Comments Notes: Spoke w/ELIZABETH, they are not able to send out an RN until tomorrow for TPN. NISHANT spoke with pharmacist, RN, and pt. Per MD, it is fine if pt does not get TPN tonight. Everyone is agreed that it is ok, NISHANT notified Karen at [facility] who will call pt tonight and [facility] RN will also call pt. [facility] will deliver TPN tomorrow and nursing will coordinate with patient. Date Signed: 07/06/2017 02:39 PM Electronically Signed By:Susana Washington RN Intervention Information Intervention Type:*IM-Signed Date of Service:07/06/2017 01:56 PM Patient Type:Inpatient Staff Member:Taylor Dunn Hours: Discipline: Severity: Comment:
== END 2017-07-06 14:15 | disposition home health service (06) | DRG 395 ==
LOC: OBSVTOIN 16:43 → F3N 16:43 → F3E 07-03 16:30
PROVIDERS: ADMIT Surgery; ATTEND Surgery
PROC: 02HV33Z Insertion of Infusion Device into Superior Vena Cava, Percutaneous Approach (ICD-10-PCS; principal; 2017-07-03)
DX: K63.2 Fistula of intestine (principal); Z85.43 Personal history of malignant neoplasm of ovary; E03.9 Hypothyroidism, unspecified; E78.5 Hyperlipidemia, unspecified
CPT/HCPCS: C1751; G0378; J0696; J1815; J2270; J2405; J2997; Q9967

== ENCOUNTER → 2018-06-01 | Outpatient (CLI) | payer OTHER | LOC: FIMAGING 16:35 | PROVIDERS: ATTEND Internal Medicine Hematology & Oncology | DX: C56.2 Malignant neoplasm of left ovary (principal); N28.1 Cyst of kidney, acquired ==